=== PATIENT | female | born 1955 | race Caucasian/White ===

== ENCOUNTER → 2018-05-27 09:55 | Outpatient (CLI) | payer OTHER, SELFPAY ==
[2018-05-27 11:29] LABS: Alanine Aminotransferase 37 IU/L (9-52); Albumin 4.4 g/dL (3.5-5.0); Albumin Globulin Ratio 1.5 (1.0-2.8); Alkaline Phosphatase 87 U/L (38-126); Aspartate Aminotransferase 32 IU/L (14-36); BUN Creatinine Ratio 21.1 (6-22); Bilirubin Total 0.6 mg/dL (0.2-1.3); Blood Urea Nitrogen 19 mg/dL (7-17); Calcium 9.6 mg/dL (8.4-10.2); Carbon Dioxide 29 mmol/L (22-32); Chloride 103 mmol/L (98-107); Cholesterol 206 mg/dL (140-199); Estimated Glomerular Filt Rate > 60.0 mL/min (>60); Glucose 99 mg/dL (80-110); HDL Cholesterol 69 mg/dL (40-60); HEMOLYSIS < 15 (0-50); LDL Cholesterol Calculated 125 mg/dL (<100); Potassium 4.3 mmol/L (3.4-5.1); Sodium 140 mmol/L (137-145); Total Protein 7.4 g/dL (6.3-8.2); Triglycerides 61 mg/dL (35-150)
[2018-05-27 11:52] LABS: Vitamin D 25 Hydroxy (D3) 40.5 ng/mL (30.0-100.0)
[2018-05-27 12:10] LABS: TSH w/ Reflex to FT4 1.53 uIU/mL (0.47-4.68)
== END ==
PROVIDERS: PCP Student in an Organized Health Care Education/Training Program; Visit Provider Student in an Organized Health Care Education/Training Program
DX: Z13.220 Encounter for screening for lipoid disorders (principal); F41.9 Anxiety disorder, unspecified; E55.9 Vitamin D deficiency, unspecified; K21.9 Gastro-esophageal reflux disease without esophagitis; B35.1 Tinea unguium
CPT/HCPCS: 36415; 80053; 80061; 82306; 84443

== ENCOUNTER → 2018-07-08 10:04 | Outpatient (CLI) | payer OTHER, SELFPAY ==
--- NOTE | 2018-07-08 10:08 | DI.MG.S_ITS ---
BILATERAL DIGITAL SCREENING MAMMOGRAM 3D/2D WITH CAD: 07/08/2018 CLINICAL: Routine screening. Baseline exam. No prior exams were available for comparison. The tissue of both breasts is heterogeneously dense. This may lower the sensitivity of mammography. Current study was also evaluated with a Computer Aided Detection (CAD) system. There are benign calcifications in both breasts. No significant masses, calcifications, or other findings are seen in either breast. IMPRESSION: There is no mammographic evidence of malignancy. A 1 year screening mammogram is recommended. This exam was interpreted at Station ID: [id number]. NOTE: For mammograms, a report in lay terms will be sent to the patient. Approximately 15% of breast malignancies will not be visualized mammographically. In the management of a palpable breast mass, a negative mammogram must not discourage biopsy of a clinically suspicious lesion. Electronically Signed By: Ramiro [email or web address]:07/08/2018 10:58:50 letter sent: Normal Exam ACR BI-RADS Category 2: Benign Finding(s) 3342F
== END ==
PROVIDERS: PCP Student in an Organized Health Care Education/Training Program; Visit Provider Student in an Organized Health Care Education/Training Program
DX: Z12.31 Encounter for screening mammogram for malignant neoplasm of breast (principal); M85.851 Other specified disorders of bone density and structure, right thigh; Z78.0 Asymptomatic menopausal state; Z91.89 Other specified personal risk factors, not elsewhere classified
CPT/HCPCS: 77063; 77067; 77080

== ENCOUNTER 2018-10-04 14:46 | Day surgery (SDC) | payer OTHER, SELFPAY ==
[2018-10-04] VITALS (8 sets, daily range): BP systolic 132–163; BP diastolic 76–84; PULSE 60–76; RESP 11–16; TEMP 36.2–36.8; O2SAT 98–100; BMI 29.4
[2018-10-04] MEDS: SODIUM CHLORIDE 0.9% 1,000 ML 200 ML IV (14:59)
--- NOTE | 2018-10-04 15:36 | PM.HP.1 ---
History of Present Illness Date Patient Seen: 10/04/18 Time Patient Seen: 15:43 Chief complaint: [id number] SCREENING COLONOSCOPY Narrative: Patient is asymptomatic no melena no hematochezia has never had a colonoscopy Patient History Medical History Anxiety (Chronic) Depression (Chronic) Difficulty breathing (Chronic) Family history of bipolar disorder (Chronic) Foot pain (Chronic) Headache (Chronic) Hearing loss (Chronic) Heartburn (Chronic) History of urinary incontinence (Chronic) Nail fungus (Chronic) Vision disorder (Chronic) Chicken pox (Resolved) Measles (Resolved) Mumps (Resolved) Surgical History (Updated 06/20/18 @ 19:57 by Yary Corado) history (Resolved) Anesthesia (Resolved) History of (Resolved) History of section (Resolved) History of surgery (Resolved) Family History (Updated 06/20/18 @ 19:59 by Yary Corado) Father No problems noted. Mother Diabetes mellitus Sister Family history of thyroid problem Mental health problem Social History household members: spouse Smoking Status: Never smoker alcohol intake: current substance use type: marijuana Family & Social History Family History (Updated 06/20/18 @ 19:59 by Yary Corado) Father No problems noted. Mother Diabetes mellitus Sister Family history of thyroid problem Mental health problem Social History: household members spouse Tobacco & Substance use: Smoking Status Never smoker alcohol intake current Meds Home Medications Medication Instructions Recorded Confirmed Type cholecalciferol (vitamin D3) 1,000 1,000 unit PO DAILY 05/18/18 10/04/18 History unit capsule omeprazole 40 mg capsule,delayed 40 mg PO DAILY #90 cap 08/19/18 10/04/18 Rx release Multi Vitamin 1 tab PO DAILY 10/04/18 10/04/18 History Allergies Allergy/AdvReac Type Severity Reaction Status Date / Time No Known Drug Allergies Allergy Verified 06/12/18 18:17 Review of Systems Review of Systems All systems reviewed & are unremarkable except as noted in HPI and below Exam Vital Signs (past 8 hours): - 10/04/18 15:09 Temperature 97.5 F L Pulse Rate 76 Respiratory Rate 16 Blood Pressure 163/83 H Pulse Oximetry 98 Oxygen Delivery Method Room Air Narrative Exam Narrative: Patient is asymptomatic alert and oriented Lungs are clear Heart regular rhythm grade 2/6 systolic ejection murmur probably aortic radiates from the right side up to the neck Abdomen is soft and nontender no organomegaly Rectal will be done at time of colonoscopy Assessment & Plan Assessment & Plan narrative: Patient here for her 1st screening colonoscopy. She is asymptomatic. I have described the risks of bleeding and infection and perforation. She understands that these are rare. She has no further questions.
[2018-10-04] MEDS: MIDAZOLAM 5 MG/5 ML VIAL IV (15:53)
[2018-10-04] MEDS: fentaNYL 250 MCG/5 ML INJ IV (15:54)
--- NOTE | 2018-10-04 16:25 | PM.OP.ENDO ---
Operative Date/Time/Diagnoses Date of procedure: 10/04/18 Time of procedure: 16:25 Pre-op diagnosis: Screening colonoscopy Post-op diagnosis: same Procedure & Clinicians Study performed: Total colonoscopy to the cecum Same procedure as scheduled: Yes Indications: Screening Surgeon: Nasir Rod Procedure Notes SCOAP/Timeout: Was done Procedure in detail: Patient was properly identified during surgical pause she was given a total of 7 mg of Versed and 250 micro g of fentanyl throughout the procedure which was well tolerated. Patient has a very difficult colonoscopy had to be repositioned several times abdominal pressure applied but we were able to reach the cecum with the tip of the colonoscope. Patient has no polyps no tumors no ulcerations. Any future colonoscopy procedures should be attended with general anesthesia. Scope withdrawal time: 15 Sedation minutes: 35 Specimen(s): none sent Complications: none Impression: No evidence of adenomatous polyps ulceration or diverticulosis patient has a severely angulated and tortuous colon. Any future attempt at colonoscopy should be done with general anesthesia Recommendations: Colonscopy in 10 years Disposition: PACU
--- NOTE | 2018-10-04 16:28 | P.OP.ENDO_ITS ---
Operative Date/Time/Diagnoses Date of procedure: 10/04/18 Time of procedure: 16:25 Pre-op diagnosis: Screening colonoscopy Post-op diagnosis: same Procedure & Clinicians Study performed: Total colonoscopy to the cecum Same procedure as scheduled: Yes Indications: Screening Surgeon: Nasir Rod Procedure Notes SCOAP/Timeout: Was done Procedure in detail: Patient was properly identified during surgical pause she was given a total of 7 mg of Versed and 250 micro g of fentanyl throughout the procedure which was well tolerated. Patient has a very difficult colonoscopy had to be repositioned several times abdominal pressure applied but we were able to reach the cecum with the tip of the colonoscope. Patient has no polyps no tumors no ulcerations. Any future colonoscopy procedures should be attended with general anesthesia. Scope withdrawal time: 15 Sedation minutes: 35 Specimen(s): none sent Complications: none Impression: No evidence of adenomatous polyps ulceration or diverticulosis patient has a severely angulated and tortuous colon. Any future attempt at co lonoscopy should be done with general anesthesia Recommendations: Colonscopy in 10 years Disposition: PACU
--- NOTE | 2018-10-04 16:55 | SUR.PHASEI ---
Post procedure note: patient vital signs stable. On room air Sats 99-1000%. Mostly sleeping, easily arousable by normal voice. Responds verbally and is able to answer questions appropriately. NSR 60-70's. No complaints of pain. Tolerating ice chips.
--- NOTE | 2018-10-05 09:53 | PM.OP.ENDO ---
Procedure Notes Procedure in detail: This is Dr. Rod dictating an addendum to a colonoscopy report. The colonoscopy was done yesterday late afternoon. October 04, 2018. I dictated the operative report as no abnormal findings. No polyps no tumors no ulcerations. After reviewing operative photographs I have decided there may be an abnormality in the rectosigmoid area represented by a white plaque in the rectosigmoid mucosa. I did see this and photographed it as I introduced the scope however on withdrawal of the scope when I normally do biopsies or polypectomies I could not find that area. Therefore there has been no biopsy. I have telephoned the patient this morning which is October 05, 2018 and described this finding. Actually I had given the patient a copy of that photograph. My plan is to repeat a flexible sigmoidoscopy in 3 months. The patient understands and will be scheduled through my office for that procedure this December 2018. She is asymptomatic and doing well after yesterday's exam. This concludes the addendum to my operative note of October 04, 2018 Impression: Possible abnormal finding in the rectosigmoid to be reexamined in 3 months. Plan for aftercare: Flexible sigmoid scope in 3 months.
== END 2018-10-04 17:24 | disposition home or self-care (01) ==
PROVIDERS: PCP Student in an Organized Health Care Education/Training Program; Visit Provider Surgery
PROC: 0DJD8ZZ Inspection of Lower Intestinal Tract, Via Natural or Artificial Opening Endoscopic (ICD-10-PCS; CPT 45378; principal; 2018-10-04 16:00)
DX: Z12.11 Encounter for screening for malignant neoplasm of colon (principal)
CPT/HCPCS: 45378; 99152; 99153; J2250; J3010

== ENCOUNTER 2019-01-28 12:10 | Day surgery (SDC) | payer OTHER, SELFPAY ==
[2019-01-28] MEDS: SODIUM CHLORIDE 0.9% 1,000 ML 200 ML IV (12:21)
[2019-01-28 12:34] VITALS: BP 163/86; PULSE 70; RESP 16; TEMP 36.2; O2SAT 100; BMI 29.2
--- NOTE | 2019-01-28 12:58 | PM.HP.1 ---
History of Present Illness History of Present Illness Date Patient Seen: 01/28/19 Time Patient Seen: 12:58 Chief complaint: [id number] FLEX SIG Narrative: Patient had a complete colonoscopy 3 months ago. At that time I saw a plaque-like area in the sigmoid colon that was not possible to biopsy of is a directly around the band but I could visualize a whitish plaque and so I am repeating her flexible sigmoidoscopy today to follow up on that abnormality. The patient remains asymptomatic. Patient History Medical History Anxiety (Chronic) Chicken pox (Resolved) Depression (Chronic) Difficulty breathing (Chronic) Family history of bipolar disorder (Chronic) Foot pain (Chronic) Headache (Chronic) Hearing loss (Chronic) Heartburn (Chronic) History of urinary incontinence (Chronic) Irregular menstrual cycle (Resolved) Measles (Resolved) Mumps (Resolved) Nail fungus (Chronic) Onychomycosis (Chronic) Vision disorder (Chronic) Surgical History history (Resolved) Anesthesia (Resolved) History of section (Resolved) History of surgery (Resolved) History of (Resolved) Family & Social History Family History Father No problems noted. Mother Diabetes mellitus Frail elderly Sister Family history of thyroid problem Mental health problem Sister Stroke Social History: household members spouse Tobacco & Substance use: Smoking Status Never smoker alcohol intake current Meds Home Medications and Allergies Home Medications Medication Instructions Recorded Confirmed Type cholecalciferol (vitamin D3) 1,000 1,000 unit PO DAILY 05/18/18 01/28/19 History unit capsule omeprazole 40 mg capsule,delayed 40 mg PO DAILY #90 cap 08/19/18 01/28/19 Rx release utkexduy-njed-ere-folic acid [One 1 tab PO DAILY #0 10/04/18 01/28/19 History Daily For Women] Allergies Allergy/AdvReac Type Severity Reaction Status Date / Time No Known Drug Allergies Allergy Verified 01/28/19 12:23 Review of Systems Review of Systems ROS Unobtainable: All systems reviewed & are unremarkable except as noted in HPI and below Exam Vital Signs (past 8 hours): - 01/28/19 12:34 Temperature 97.1 F L Pulse Rate 70 Respiratory Rate 16 Blood Pressure 163/86 H Pulse Oximetry 100 Oxygen Delivery Method Room Air Narrative Exam Narrative: Patient resting comfortably in the outpatient department with no complaints. Lungs are clear with no rales or wheezes Heart regular rhythm no murmur Abdomen soft nontender Rectal be done at colonoscopy Assessment & Plan Assessment & Plan narrative: This patient had a colonoscopy 3 months ago that I did myself. At that time she had a plaque-like area in the sigmoid that I could not biopsy as it was directly behind a fold .. Today we are re-evaluating that area with a flexible sigmoidoscopy today patient remains asymptomatic.
--- NOTE | 2019-01-28 13:11 | PM.OP.ENDO ---
Operative Date/Time/Diagnoses Date of procedure: 01/28/19 Time of procedure: 13:12 Pre-op diagnosis: Possible sigmoid abnormality Post-op diagnosis: other (Normal endoscopy from anus to 60 cm splenic flexure) Procedure & Clinicians Study performed: Examination of left colon Same procedure as scheduled: Yes Indications: Patient had a complete colonoscopy 3 months ago during which time I thought I encountered an abnormality in the sigmoid colon which may need re-evaluation on today's exam this is completely normal. Surgeon: Nasir Rod Procedure Notes SCOAP/Timeout: This was done Procedure in detail: The patient was properly identified during surgical pause given 2 mg of Versed and 100 micro g of fentanyl. The flexible colonoscope was inserted transanally up to the splenic flexure 60 cm. Very thorough and careful evaluation of possible abnormal area in the sigmoid was carried out. I re-evaluated this area 3 or 4 times and saw no abnormality. No biopsies were required. Procedure was well tolerated. The plan for flexible sigmoidoscopy actually was carried out beyond that to the splenic flexure. Scope withdrawal time: 5 Sedation minutes: 10 Specimen(s): none sent Complications: none Post-procedure Recommendations: Colonscopy in 10 years
[2019-01-28] MEDS: fentaNYL 100 MCG/2 ML INJ IV (13:12)
[2019-01-28] MEDS: MIDAZOLAM 2 MG/2 ML VIAL IV (13:13)
[2019-01-28 13:15] VITALS: BP 125/68; PULSE 66; RESP 15; TEMP 35.9; O2SAT 99
[2019-01-28 13:20] VITALS: BP 129/74; PULSE 65; RESP 15; O2SAT 100
[2019-01-28 13:25] VITALS: BP 147/77; PULSE 65; RESP 16; TEMP 36.1; O2SAT 100
[2019-01-28 13:48] VITALS: BP 138/82; PULSE 70; RESP 16; TEMP 36.5; O2SAT 99
== END 2019-01-28 13:56 | disposition home or self-care (01) ==
PROVIDERS: PCP Student in an Organized Health Care Education/Training Program; Visit Provider Surgery
PROC: 0DJD8ZZ Inspection of Lower Intestinal Tract, Via Natural or Artificial Opening Endoscopic (ICD-10-PCS; CPT 45378; principal; 2019-01-28 13:00)
DX: K63.89 Other specified diseases of intestine (principal)
CPT/HCPCS: 45330; 99152; J2250; J3010

== ENCOUNTER → 2019-06-10 11:58 | Outpatient (CLI) | payer OTHER, SELFPAY ==
[2019-06-10 12:50] LABS: Chloride 104 mmol/L (98-107)
[2019-06-10 13:15] LABS: BUN Creatinine Ratio 22.5 (6-22); Blood Urea Nitrogen 18 mg/dL (7-17); Calcium 9.6 mg/dL (8.4-10.2); Carbon Dioxide 27 mmol/L (22-32); Estimated Glomerular Filt Rate > 60.0 mL/min (>60); Glucose 92 mg/dL (80-110); HEMOLYSIS < 15 (0-50); Potassium 3.8 mmol/L (3.4-5.1); Sodium 138 mmol/L (137-145)
[2019-06-10 13:25] LABS: TSH w/ Reflex to FT4 1.74 uIU/mL (0.47-4.68)
[2019-06-10 14:44] LABS: Microalbumi Creatinin Ratio Ur 7.6 ug/mg CR (<30); Microalbumin Urine Random < 0.6 mg/dL (0-1.6)
== END ==
PROVIDERS: PCP Student in an Organized Health Care Education/Training Program; Referring Provider Student in an Organized Health Care Education/Training Program; Visit Provider Student in an Organized Health Care Education/Training Program
DX: I10 Essential (primary) hypertension (principal)
CPT/HCPCS: 36415; 80048; 82043; 82570; 84443

== ENCOUNTER 2019-09-03 11:46 | Emergency (ER) | payer OTHER, SELFPAY ==
[2019-09-03 11:54] VITALS: BP 138/61; PULSE 70; RESP 16; TEMP 36.4; O2SAT 99; BMI 29.2
[2019-09-03 12:50] VITALS: BP 117/68; PULSE 61; O2SAT 99
[2019-09-03 13:00] VITALS: BP 117/68; PULSE 60; RESP 18; O2SAT 98
[2019-09-03] MEDS: SODIUM CHLORIDE 0.9% 1,000 ML 150 ML IV (13:17)
[2019-09-03 13:19] LABS: Add Manual Diff / Slide Review NO; Basophils Absolute Auto 100 /uL (0-100); Basophils Percent Auto 0.6 % (0-2); Eosinophils Absolute Auto 100 /uL (0-450); Eosinophils Percent Auto 1.1 % (2-4); Hematocrit 40.8 % (36-46); Lymphocytes Absolute Auto 2100 /uL (1100-4500); Mean Corpuscular HGB Conc 34.3 % (30-36); Mean Corpuscular Hemoglobin 31.6 PG (26-34); Mean Corpuscular Volume 92.2 fL (80-100); Monocytes Absolute Auto 700 /uL (0-900); Monocytes Percent Auto 6.5 % (3-14); Neutrophils Absolute Auto 7100 /uL (1500-7000); Neutrophils Percent Auto 70.8 % (50-75); Platelet Count 238 X10^3/uL (150-400); Red Blood Cell Count 4.43 X10^6/uL (4.0-5.2); Red Cell Distribution Width 13.5 % (11.6-14.8); White Blood Cell Count 10.1 X10^3/uL (4.5-11.0)
[2019-09-03 13:31] LABS: Alanine Aminotransferase 19 IU/L (<35); Albumin Globulin Ratio 1.4 (1.0-2.8); Alkaline Phosphatase 81 U/L (38-126); Aspartate Aminotransferase 25 IU/L (14-36); BUN Creatinine Ratio 17.5 (6-22); Bilirubin Total 0.6 mg/dL (0.2-1.3); Blood Urea Nitrogen 14 mg/dL (7-17); Calcium 9.4 mg/dL (8.4-10.2); Carbon Dioxide 29 mmol/L (22-32); Chloride 103 mmol/L (98-107); Estimated Glomerular Filt Rate > 60.0 mL/min (>60); Globulin 2.9 g/dL (1.7-4.1); Glucose 104 mg/dL (80-110); HEMOLYSIS < 15 (0-50); Lipase 60 U/L (23-300); Sodium 136 mmol/L (137-145); Total Protein 6.9 g/dL (6.3-8.2)
[2019-09-03 13:32] LABS: Lactate (Lactic Acid) 0.9 mmol/L (0.7-2.1)
--- NOTE | 2019-09-03 13:48 | DI.CT.S_ITS ---
PROCEDURE: CT ABDOMEN PELVIS W CON INDICATIONS: low abdominal intermittent cramping pain x 2 days TECHNIQUE: After the administration of intravenous contrast, 5 mm thick sections acquired from the diaphragm to the symphysis. 5 mm coronal and sagittal reformats were acquired. For radiation dose reduction, the following was used: automated exposure control, adjustment of mA and/or kV according to patient size. COMPARISON: None. FINDINGS: Image quality: Excellent. ABDOMEN: Lung bases: Lung bases are clear. Heart size is normal. Solid organs: Liver is normal in size and enhancement. Gallbladder wall does not appear thickened. Biliary system is non dilated. Pancreas enhances normally. Spleen is normal in size and enhancement. No adrenal nodules. Kidneys demonstrate normal size and enhancement, without hydronephrosis. Peritoneum and bowel: There is focal prominent wall thickening seen involving the splenic flexure and the descending colon. There is moderate surrounding inflammatory change. No free air is seen to suggest perforation. No loculated fluid collection is seen to suggest abscess. There is a mild amount of simple appearing free fluid seen layering within the pelvis. No dilated loops of small bowel are seen. Nodes and vessels: No retroperitoneal or mesenteric adenopathy by size criteria. Aorta and inferior vena cava are normal in size. Miscellaneous: A mild periumbilical hernia is seen, containing fat. PELVIS: Genitourinary: Bladder wall thickness is normal. The uterus appears normal for age. No adnexal masses are seen. Miscellaneous: No inguinal hernias or adenopathy. Bones: No suspicious bony lesions. No vertebral body compression fractures. Degenerative changes are seen, particularly involving the lower lumbar spine. IMPRESSION: Focal colitis involving the splenic flexure and the descending colon. Please correlate with infectious and inflammatory causes. Ischemia is possible, yet considered to be less likely in this patient. When clinically appropriate (following adequate treatment of the patient's current clinical episode) a colonoscopy is recommended for further evaluation for a potential underlying mass (if not already recently done). No findings of perforation or abscess are detected. There is a small amount of free pelvic seen. Incidental note is made of: Fat containing periumbilical hernia Lumbar spine degenerative Dictated by: Mauricio Castro M.D. on 09/03/2019 at 13:25 Approved by: Mauricio Castro M.D. on 09/03/2019 at 13:29
[2019-09-03 14:50] LABS: RBC Urine None Seen (0-5/HPF)
[2019-09-03 15:06] LABS: Amorphous Sediment Urine 1+; Bacteria Urine Occasional (0-1); Culture Indicated Urine Specimen Cultured; Mucus Urine 1+ (Negative); Squamous Epithelial Cell Urine 0-1 /HPF (0-5/HPF); WBC Urine 1-5/HPF (0-5/HPF)
[2019-09-03 15:13] VITALS: BP 172/77; PULSE 66; RESP 18; O2SAT 99
--- NOTE | 2019-09-03 15:16 | ED_ITS ---
HPI - Abdominal Pain <RIKKI Aguirre - Last Filed: 09/03/19 22:22> General Chief Complaint: Abdominal Pain Stated Complaint: ABD pain Time Seen by Provider: 09/03/19 12:35 Source: patient Mode of arrival: Ambulatory Limitations: no limitations History of Present Illness HPI narrative: This is a 64 year female, nonsmoker, who has history of hypertension, GERD who presents to ED with significant other with chief complain of intermittent left upper quadrant and lower quadrant cramping discomfort for last 2 days. Patient also has some suprapubic discomfort. Patient reports she had worst pain 2 days ago and woke up from pain however, pain since somewhat subsided yesterday and today. Patient reports decreased appetite and chills. Denies fever, nausea or vomiting. Patient denies diarrhea and reports she usually has hard stool like a ball daily and states she is not really passing gas. Patient reports urinary frequency especially and nights without dysuria, hematuria. She denies flank pain. Patient has a history of abdominal surgery as and hairball removal during childhood. Patient had recent colonoscopy twice last September and January in 2018 at [facility]. Initial colonoscopy showed retrosigmoid mucosal area with a white plaque which was not able to biopsied. Repeat colonoscopy was done in January which was cleared with normal findings. According to patient's , he received the letter from general surgery clinic that she may require a surgery and patient states she was told by Dr. Rod that her bowel was twisted after colonoscopy. Patient denies family history of colon cancer. Related Data Home Medications Medication Instructions Recorded Confirmed cholecalciferol (vitamin D3) 25 1,000 unit PO DAILY 05/18/18 06/10/19 mcg (1,000 unit) capsule One Daily For Women 1 tab PO DAILY #0 10/04/18 06/10/19 Previous Rx's Medication Instructions Recorded omeprazole 40 mg capsule,delayed 40 mg PO DAILY #90 cap 08/19/18 release lisinopril 20 mg tablet 20 mg PO DAILY #90 tab 07/08/19 propranolol 40 mg tablet 40 mg PO BID #60 tab 08/04/19 ciprofloxacin HCl [Cipro] 500 mg PO BID 7 Days #14 tab 09/03/19 Allergies Allergy/AdvReac Type Severity Reaction Status Date / Time No Known Drug Allergies Allergy Verified 06/10/19 11:25 Review of Systems <RIKKI Aguirre - Last Filed: 09/03/19 22:22> Review of Systems Narrative: General: Denies fever, (+) chills, fatigue, malaise, sweats. HEENT: Denies sinus pain, ear pain, sore throat, difficulty swallowing, dizziness. Respiratory: Denies dyspnea, cough, wheezing, hemoptysis, sputum. Cardiovascular: Denies chest pain, palpitations, orthopnea, edema. Gastrointestinal: See HPI : Denies dysuria, (+) frequency, incontinence, hematuria, urinary retention. Musculoskeletal: Denies weakness, joint pain or bony pain. Skin: Denies rash, skin lesions, or other. Neurologic: Denies weakness, headache, numbness, change in speech, confusion, seizures, incoordination. Psychiatric: No concerning psychosocial issues. 12-point review of systems is negative except for those stated above. Patient History <RIKKI Aguirre - Last Filed: 09/03/19 22:22> Medical History Anxiety (Chronic) Chicken pox (Resolved) Depression (Chronic) Difficulty breathing (Chronic) Family history of bipolar disorder (Chronic) Foot pain (Chronic) Headache (Chronic) Hearing loss (Chronic) Heartburn (Chronic) History of urinary incontinence (Chronic) Irregular menstrual cycle (Resolved) Measles (Resolved) Mumps (Resolved) Nail fungus (Chronic) Onychomycosis (Chronic) Vision disorder (Chronic) Surgical History history (Resolved) Anesthesia (Resolved) History of section (Resolved) History of surgery (Resolved) History of (Resolved) Family History Father No problems noted. Mother Diabetes mellitus Frail elderly Sister Family history of thyroid problem Mental health problem Sister Stroke Social History household members: spouse Smoking Status: Never smoker alcohol intake: current substance use type: marijuana Smoking Status: Never smoker alcohol intake frequency: 0-2 drinks per day Alcohol type: wine Substance Use Type: marijuana Exam <RIKKI Aguirre - Last Filed: 09/03/19 22:22> Narrative Exam Narrative: GEN: Alert, oriented x 3, well appearing and nourished, and in n o acute distress. Head: Normal cephalic, atraumatic. No scalp or temporal tenderness, palpable mass or rash. EYES: Pupils are equal, round, and reactive to light and accommodation. Extraocular muscles are intact bilaterally. There is no subconjunctival hemorrhage, exudate and sclera non-icteric. ENT: Bilateral auditory canals and tympanic membranes clear. Hearing grossly intact. Nose without bleeding, purulent discharge or deviation. Facial sinuses nontender to palpate. Mucous membrane moist, no mucosal lesion. Throat without erythema, tonsillar hypertrophy or exudate. Uvula in midline, airway patent. Neck: Trachea in midline. No JVD, non-tender without lymphadenopathy. No masses or thyroid megaly. Supple, non-tender and no meningeal signs. CARDIAC: Normal regular rate and rhythm without murmurs, gallops, or rubs. No chest wall tenderness. No peripheral edema, cyanosis or pallor. Capillary refill is less than 2 seconds. RESPIRATORY: Lungs are clear to auscultate bilaterally. No cough, wheezes, rales, or rhonchi. No stridor, respiratory distress, increase work of breathing, or accessary muscle used. ABD: Abdomen soft and non-distended. Left lower, upper quadrant pain discomfort with palpation. No guarding or rebound tenderness to palpate. Bowel sounds are normal in all 4 quadrants. There is no palpable masses or organomegaly. EXT: Full painless ROM of all extremities with no loss of sensation, strength, effusion or edema. SKIN: Warm, dry, normal color for patient. No erythema, lesions or rash over visible areas. BACK: Nontender without deformity or crepitance. No flank tenderness. NEUROLOGICAL: Alert and oriented to place, time and person. Sensation and motor function intact bilaterally. No facial droops, dysphasia. PSYCHIATRIC: Good judgement and reason, without hallucinations, abnormal affect or abnormal behaviors during the examination. Patient is not suicidal. Initial Vital Signs Initial Vital Signs: Vital Signs Temperature 97.6 F 09/03/19 11:54 Pulse Rate 70 09/03/19 11:54 Respiratory Rate 16 09/03/19 11:54 Blood Pressure 138/61 09/03/19 11:54 Pulse Oximetry 99 09/03/19 11:54 <Shine Soto MD - Last Filed: 09/04/19 07:45> Initial Vital Signs Initial Vital Signs: Vital Signs Temperature 97.6 F 09/03/19 11:54 Pulse Rate 70 09/03/19 11:54 Respiratory Rate 16 09/03/19 11:54 Blood Pressure 138/61 09/03/19 11:54 Pulse Oximetry 99 09/03/19 11:54 Scores <[facility] - Last Filed: 09/03/19 22:22> GCS Diane coma scale eye opening: Spontaneous Diane coma scale verbal response: Orientated [place] coma scale motor response: Obey commands Diane coma scale total score: 15 Course <RIKKI Aguirre - Last Filed: 09/03/19 22:22> Orders Ordered: Discontinued Medications Sodium Chloride (Normal Saline 0.9%) 1,000 mls @ 150 mls/hr IV CONT VICTOR HUGO Last Infusion: 09/03/19 15:30 Dose: 0 mls/hr Documented by: Admin: 09/03/19 13:17 Dose: 150 mls/hr Documented by: GIA Consultations Consultation #1: Dr. Fernandez at [facility] surgery consulted with physical, labs, imaging test. It was recommended to start her on Cipro b.i.d. course for 7 days and re-evaluated by primary care physician next week and a referral to General surgery Clinic. Time: 15:18 Vital Signs Vital signs: Vital Signs - 8 hr 09/03/19 15:13 Pulse Rate 66 Respiratory Rate 18 Blood Pressure [Left Arm] 172/77 H Pulse Oximetry 99 <Shine Stoo MD - Last Filed: 09/04/19 07:45> Orders Ordered: Discontinued Medications Sodium Chloride (Normal Saline 0.9%) 1,000 mls @ 150 mls/hr IV CONT VICTOR HUGO Last Infusion: 09/03/19 15:30 Dose: 0 mls/hr Documented by: Admin: 09/03/19 13:17 Dose: 150 mls/hr Documented by: GIA Vital Signs Vital signs: Vital Signs - 8 hr 09/03/19 15:13 Pulse Rate 66 Respiratory Rate 18 Blood Pressure [Left Arm] 172/77 H Pulse Oximetry 99 MDM - Abdominal Pain <XIMENA AguirreP - Last Filed: 09/03/19 22:22> Differential Diagnosis Differential diagnosis: Likely abdominal pain, calculus of kidney, diverticulitis, small bowel obstruction and other (UTI) Medical Records Attestation: I reviewed the patient's medical records. Lab Data Attestation: I reviewed the patient's lab results. Result diagrams: 09/03/19 13:10 09/03/19 13:10 Labs: Lab Results 09/03/19 09/03/19 09/03/19 Range/Units 13:10 13:10 13:10 WBC 10.1 (4.5-11.0) X10^3/uL RBC 4.43 (4.0-5.2) X10^6/uL Hgb 14.0 (12.0-16.0) g/dL Hct 40.8 (36-46) % MCV 92.2 (80-100) fL MCH 31.6 (26-34) PG MCHC 34.3 (30-36) % RDW 13.5 (11.6-14.8) % Plt Count 238 (150-400) X10^3/uL Neut % (Auto) 70.8 (50-75) % Lymph % (Auto) 21.0 L (25-40) % [place] % (Auto) 6.5 (3-14) % Eos % (Auto) 1.1 L (2-4) % Baso % (Auto) 0.6 (0-2) % Neut # (Auto) 7100 H (6480-8101) /uL Lymph # (Auto) 2100 (8215-3883) /uL [place] # (Auto) 700 (0-900) /uL Eos # (Auto) 100 (0-450) /uL Baso # (Auto) 100 (0-100) /uL Sodium 136 L (137-145) mmol/L Potassium 4.0 (3.4-5.1) mmol/L Chloride 103 (98-107) mmol/L Carbon Dioxide 29 (22-32) mmol/L BUN 14 (7-17) mg/dL Creatinine 0.80 (0.52-1.04) mg/dL Estimated GFR > 60.0 (>60) mL/min BUN/Creatinine Ratio 17.5 (6-22) Glucose 104 (80-110) mg/dL Lactate 0.9 (0.7-2.1) mmol/L Calcium 9.4 (8.4-10.2) mg/dL Total Bilirubin 0.6 (0.2-1.3) mg/dL AST 25 (14-36) IU/L ALT 19 (<35) IU/L Alkaline Phosphatase 81 (38-126) U/L Total Protein 6.9 (6.3-8.2) g/dL Albumin 4.0 (3.5-5.0) g/dL Globulin 2.9 (1.7-4.1) g/dL Albumin/Globulin Ratio 1.4 (1.0-2.8) Lipase 60 (23-300) U/L Urine RBC (0-5/HPF) Urine WBC (0-5/HPF) Ur Squamous Epith Cells (0-5/HPF) Amorphous Sediment Urine Bacteria (None) Urine Mucus (Negative) Ur Culture Indicated? 09/03/19 Range/Units 14:24 WBC (4.5-11.0) X10^3/uL RBC (4.0-5.2) X10^6/uL Hgb (12.0-16.0) g/dL Hct (36-46) % MCV (80-100) fL MCH (26-34) PG MCHC (30-36) % RDW (11.6-14.8) % Plt Count (150-400) X10^3/uL Neut % (Auto) (50-75) % Lymph % (Auto) (25-40) % [place] % (Auto) (3-14) % Eos % (Auto) (2-4) % Baso % (Auto) (0-2) % Neut # (Auto) (1109-2614) /uL Lymph # (Auto) (5215-1246) /uL [place] # (Auto) (0-900) /uL Eos # (Auto) (0-450) /uL Baso # (Auto) (0-100) /uL Sodium (137-145) mmol/L Potassium (3.4-5.1) mmol/L Chloride (98-107) mmol/L Carbon Dioxide (22-32) mmol/L BUN (7-17) mg/dL Creatinine (0.52-1.04) mg/dL Estimated GFR (>60) mL/min BUN/Creatinine Ratio (6-22) Glucose (80-110) mg/dL Lactate (0.7-2.1) mmol/L Calcium (8.4-10.2) mg/dL Total Bilirubin (0.2-1.3) mg/dL AST (14-36) IU/L ALT (<35) IU/L Alkaline Phosphatase (38-126) U/L Total Protein (6.3-8.2) g/dL Albumin (3.5-5.0) g/dL Globulin (1.7-4.1) g/dL Albumin/Globulin Ratio (1.0-2.8) Lipase (23-300) U/L Urine RBC None seen (0-5/HPF) Urine WBC 1-5/hpf (0-5/HPF) Ur Squamous Epith Cells 0-1 /hpf (0-5/HPF) Amorphous Sediment 1+ Urine Bacteria Occasional (0-1) (None) Urine Mucus 1+ H (Negative) Ur Culture Indicated? Specimen cultured Point of care testing: Urine Dip Bedside Urine Glucose Negative Bedside Urine Bilirubin + 1 Bedside Urine Ketone - Negative Urine Specific [place] 1.015 Bedside Urine Occult Blood - Negative Bedside Urine pH 6.0 Bedside Urine Protein - Negative Bedside Urine Urobilinogen +/- 1mg Bedside Urine Nitrite - Negative Bedside Urine Leukocytes + [address] scan - abdomen/pelvis: Radiologist's Impression: [place] [address] CT Scan Report Signed Patient: Nicolle Moreno#: [id number] : 6Acct:[id number] Age/Sex: 64 / FDate of Service: 09/03/19 Loc: ED Accession Number: [id number] Procedure: CT abdomen pelvis w con Ordering Provider: Ilan Uribe PROCEDURE: CT ABDOMEN PELVIS W CON INDICATIONS: low abdominal intermittent cramping pain x 2 days TECHNIQUE: After the administration of intravenous contrast, 5 mm thick sections acquired from the diaphragm to the symphysis. 5 mm coronal and sagittal reformats were acquired. For radiation dose reduction, the following was used: automated exposure control, adjustment of mA and/or kV according to patient size. COMPARISON: None. FINDINGS: Image quality: Excellent. ABDOMEN: Lung bases: Lung bases are clear. Heart size is normal. Solid organs: Liver is normal in size and enhancement. Gallbladder wall does not appear thickened. Biliary system is non dilated. Pancreas enhances normally. Spleen is normal in size and enhancement. No adrenal nodules. Kidneys demonstrate normal size and enhancement, without hydronephrosis. Peritoneum and bowel: There is focal prominent wall thickening seen involving the splenic flexure and the descending colon. There is moderate surrounding inflammatory change. No free air is seen to suggest perforation. No loculated fluid collection is seen to suggest abscess. There is a mild amount of simple appearing free fluid seen layering within the pelvis. No dilated loops of small bowel are seen. Nodes and vessels: No retroperitoneal or mesenteric adenopathy by size criteria. Aorta and inferior vena cava are normal in size. Miscellaneous: A mild periumbilical hernia is seen, containing fat. PELVIS: Genitourinary: Bladder wall thickness is normal. The uterus appears normal for age. No adnexal masses are seen. Miscellaneous: No inguinal hernias or adenopathy. Bones: No suspicious bony lesions. No vertebral body compression fractures. Degenerative changes are seen, particularly involving the lower lumbar spine. IMPRESSION: Focal colitis involving the splenic flexure and the descending colon. Please correlate with infectious and inflammatory causes. Ischemia is possible, yet considered to be less likely in this patient. When clinically appropriate (following adequate treatment of the patient's current clinical episode) a colonoscopy is recommended for further evaluation for a potential underlying mass (if not already recently done). No findings of perforation or abscess are detected. There is a small amount of free pelvic seen. Incidental note is made of: Fat containing periumbilical hernia Lumbar spine degenerative Dictated by: Mauricio Castro M.D. on 09/03/2019 at 13:25 Approved by: Mauricio Castro M.D. on 09/03/2019 at 13:29 MDM Narrative Medical decision making narrative: Abdominal physical exam was unremarkable except some discomfort to palpate in left lower and upper quadrant. Afebrile in ED with normal to slight hypertensive while in ED with normal heart rates. There is no leukocytosis. Very mild hyponatremia of 136. Normal kidney function test with liver function test. Normal lactate of 0.9 with lipase of 60. Urine test does not show obvious UTI and culture is pending. Patient declined pain medication and anti nausea medication since it was well tolerable. Patient provided with gentle IV hydration with normal saline. Abdominal/pelvis CT indicates focal prominent wall thickening involving splenic flexure and descending colon. There is moderate surrounding inflammatory changes without free air suggesting perforation or mode to lead it fluid collection in suggestion of abscess. There is mild amount of simple appearing free fluid within the pelvis. Kidney appears to be normal without stones or hydronephrosis. Liver, gallbladder, biliary system, pancreas were unremarkable per CT test. Dr. Fernandez was consulted and he was advised to treat patient 7 day course of antibiotic medication with Cipro to treat focal colitis and to follow- up for an evaluation by primary care physician and a referral to general surgery if pain persists. Findings and return precautions were discussed with patient and patient in agreement with treatment plan. <Shine Soto MD - Last Filed: 09/04/19 07:45> Lab Data Labs: Lab Results 09/03/19 09/03/19 09/03/19 Range/Units 13:10 13:10 13:10 WBC 10.1 (4.5-11.0) X10^3/uL RBC 4.43 (4.0-5.2) X10^6/uL Hgb 14.0 (12.0-16.0) g/dL Hct 40.8 (36-46) % MCV 92.2 (80-100) fL MCH 31.6 (26-34) PG MCHC 34.3 (30-36) % RDW 13.5 (11.6-14.8) % Plt Count 238 (150-400) X10^3/uL Neut % (Auto) 70.8 (50-75) % Lymph % (Auto) 21.0 L (25-40) % [place] % (Auto) 6.5 (3-14) % Eos % (Auto) 1.1 L (2-4) % Baso % (Auto) 0.6 (0-2) % Neut # (Auto) 7100 H (9284-3353) /uL Lymph # (Auto) 2100 (2059-9054) /uL [place] # (Auto) 700 (0-900) /uL Eos # (Auto) 100 (0-450) /uL Baso # (Auto) 100 (0-100) /uL Sodium 136 L (137-145) mmol/L Potassium 4.0 (3.4-5.1) mmol/L Chloride 103 (98-107) mmol/L Carbon Dioxide 29 (22-32) mmol/L BUN 14 (7-17) mg/dL Creatinine 0.80 (0.52-1.04) mg/dL Estimated GFR > 60.0 (>60) mL/min BUN/Creatinine Ratio 17.5 (6-22) Glucose 104 (80-110) mg/dL Lactate 0.9 (0.7-2.1) mmol/L Calcium 9.4 (8.4-10.2) mg/dL Total Bilirubin 0.6 (0.2-1.3) mg/dL AST 25 (14-36) IU/L ALT 19 (<35) IU/L Alkaline Phosphatase 81 (38-126) U/L Total Protein 6.9 (6.3-8.2) g/dL Albumin 4.0 (3.5-5.0) g/dL Globulin 2.9 (1.7-4.1) g/dL Albumin/Globulin Ratio 1.4 (1.0-2.8) Lipase 60 (23-300) U/L Urine RBC (0-5/HPF) Urine WBC (0-5/HPF) Ur Squamous Epith Cells (0-5/HPF) Amorphous Sediment Urine Bacteria (None) Urine Mucus (Negative) Ur Culture Indicated? 09/03/19 Range/Units 14:24 WBC (4.5-11.0) X10^3/uL RBC (4.0-5.2) X10^6/uL Hgb (12.0-16.0) g/dL Hct (36-46) % MCV (80-100) fL MCH (26-34) PG MCHC (30-36) % RDW (11.6-14.8) % Plt Count (150-400) X10^3/uL Neut % (Auto) (50-75) % Lymph % (Auto) (25-40) % [place] % (Auto) (3-14) % Eos % (Auto) (2-4) % Baso % (Auto) (0-2) % Neut # (Auto) (8505-8909) /uL Lymph # (Auto) (2628-8873) /uL [place] # (Auto) (0-900) /uL Eos # (Auto) (0-450) /uL Baso # (Auto) (0-100) /uL Sodium (137-145) mmol/L Potassium (3.4-5.1) mmol/L Chloride (98-107) mmol/L Carbon Dioxide (22-32) mmol/L BUN (7-17) mg/dL Creatinine (0.52-1.04) mg/dL Estimated GFR (>60) mL/min BUN/Creatinine Ratio (6-22) Glucose (80-110) mg/dL Lactate (0.7-2.1) mmol/L Calcium (8.4-10.2) mg/dL Total Bilirubin (0.2-1.3) mg/dL AST (14-36) IU/L ALT (<35) IU/L Alkaline Phosphatase (38-126) U/L Total Protein (6.3-8.2) g/dL Albumin (3.5-5.0) g/dL Globulin (1.7-4.1) g/dL Albumin/Globulin Ratio (1.0-2.8) Lipase (23-300) U/L Urine RBC None seen (0-5/HPF) Urine WBC 1-5/hpf (0-5/HPF) Ur Squamous Epith Cells 0-1 /hpf (0-5/HPF) Amorphous Sediment 1+ Urine Bacteria Occasional (0-1) (None) Urine Mucus 1+ H (Negative) Ur Culture Indicated? Specimen cultured Point of care testing: Urine Dip Bedside Urine Glucose Negative Bedside Urine Bilirubin + 1 Bedside Urine Ketone - Negative Urine Specific [place] 1.015 Bedside Urine Occult Blood - Negative Bedside Urine pH 6.0 Bedside Urine Protein - Negative Bedside Urine Urobilinogen +/- 1mg Bedside Urine Nitrite - Negative Bedside Urine Leukocytes + 70 Esterase Discharge Plan Departure Patient Disposition: Home Clinical Impression: Colitis Discharge Date/Time: 09/03/19 15:32 Instructions: DI for Abdominal Pain-Adult, DI for Colitis Activity Restrictions/Additional Instructions: You have been diagnosed with [colitis in splenic flexure and descending colon. Urine culture is pending. Lab tests are unremarkable.]. What to do: *Take your medications as directed. Please start Cipro twice a day for next 7 days. It is good idea to take probiotics specially when your taking antibiotic medication to decrease GI symptoms including diarrhea. Cipro has been transmitted to [facility]. *Follow up with your primary care provider in 2-3 days, call for an appointment. Let them know you were seen in the ED and that we asked you to be seen in follow up. If your pain persists, please follow-up with general surgery. *Return to ED if you have any new, worsening, or concerning symptoms, such as [fever, worsening pain, chest pain, breathing difficulty, blood in your stool or vomit, unable to tolerate fluids or any acute concerns]. Prescriptions: New ciprofloxacin HCl [Cipro] 500 mg tablet 500 mg PO BID 7 Days Qty: 14 RF: 0 No Action omeprazole 40 mg capsule,delayed release(DR/EC) 40 mg PO DAILY Qty: 90 RF: 1 lisinopril 20 mg tablet 20 mg PO DAILY Qty: 90 RF: 1 propranolol 40 mg tablet 40 mg PO BID Qty: 60 RF: 0 cholecalciferol (vitamin D3) 1,000 unit capsule 1,000 unit PO DAILY RF: 0 One Daily For Women 18-0.4 mg Tablet 1 tab PO DAILY Qty: 0 RF: 0 Referrals: [facility] [Provider Group] Sunny Pimentel MD [Primary Care Provider] -
== END 2019-09-03 15:32 | disposition home or self-care (01) ==
PROVIDERS: Emergency Provider Nurse Practitioner Family; PCP Student in an Organized Health Care Education/Training Program
DX: K52.9 Noninfective gastroenteritis and colitis, unspecified (principal)
CPT/HCPCS: 36415; 74177; 80053; 81003; 81015; 83605; 83690; 85025; 87086; 96360; 96361; 99284; Q9967

== ENCOUNTER → 2020-06-05 11:14 | Outpatient (CLI) | payer OTHER, SELFPAY ==
--- NOTE | 2020-06-05 | DI.MG.S_ITS ---
BILATERAL DIGITAL SCREENING MAMMOGRAM 3D/2D WITH CAD: 06/05/2020 CLINICAL: Routine screening. Comparison is made to exam dated: 07/08/2018 [facility]. The tissue of both breasts is heterogeneously dense. This may lower the sensitivity of mammography. Current study was also evaluated with a Computer Aided Detection (CAD) system. No significant masses, calcifications, or other findings are seen in either breast. There has been no significant interval change. IMPRESSION: NEGATIVE There is no mammographic evidence of malignancy. A 1 year screening mammogram is recommended. This exam was interpreted at Station ID: [id number]. NOTE: For mammograms, a report in lay terms will be sent to the patient. Approximately 15% of breast malignancies will not be visualized mammographically. In the management of a palpable breast mass, a negative mammogram must not discourage biopsy of a clinically suspicious lesion. Electronically Signed By: Patrick hodges/shauna:06/05/2020 12:17:51 letter sent: Normal Exam ACR BI-RADS Category 1: Negative [id number]
== END ==
PROVIDERS: PCP Student in an Organized Health Care Education/Training Program; Referring Provider Student in an Organized Health Care Education/Training Program; Visit Provider Student in an Organized Health Care Education/Training Program
DX: Z12.31 Encounter for screening mammogram for malignant neoplasm of breast (principal)
CPT/HCPCS: 77063; 77067

== ENCOUNTER → 2020-06-20 10:04 | Outpatient (CLI) | payer OTHER, SELFPAY ==
[2020-06-20] MEDS: COVID-19 VACC #1, MRNA(MOD) 100 MCG/0.5 ML VIAL IM (10:13)
== END ==
PROVIDERS: PCP Student in an Organized Health Care Education/Training Program; Visit Provider Internal Medicine
DX: Z23 Encounter for immunization (principal)
CPT/HCPCS: 0011A; 91301

== ENCOUNTER → 2020-07-18 09:47 | Outpatient (CLI) | payer OTHER, SELFPAY ==
[2020-07-18] MEDS: COVID-19 VACC #2, MRNA(MOD) 100 MCG/0.5 ML VIAL IM (09:55)
== END ==
PROVIDERS: PCP Student in an Organized Health Care Education/Training Program; Visit Provider Internal Medicine
DX: Z23 Encounter for immunization (principal)
CPT/HCPCS: 0012A; 91301

== ENCOUNTER 2020-12-04 19:47 | Emergency (ER) | payer OTHER, SELFPAY ==
[2020-12-04 19:51] VITALS: BP 134/62; PULSE 82; RESP 22; TEMP 36.3; O2SAT 98; BMI 29.5
[2020-12-04 21:24] VITALS: PULSE 89; O2SAT 97
[2020-12-04 21:25] VITALS: BP 140/69; PULSE 89; O2SAT 97
--- NOTE | 2020-12-04 22:58 | ED.BACK ---
HPI - Back Pain/Injury General Chief Complaint: Back Pain/Injury Stated Complaint: back pain Time Seen by Provider: 12/04/20 22:34 Source: patient Limitations: no limitations History of Present Illness HPI Narrative: 65-year-old woman with history of high blood pressure and reflux presents with significant left-sided back spasm. Apparently she slept on the couch and woke up in an odd cramped position yesterday morning experienced increasing left-sided lower lumbar spasm that is increased over the last 36 hours. She has not tried any pain medications at home. She finds that it is difficult to stand because of the pain. She has never had similar findings. She does not have a history of chronic back issues. She describes no fevers, no traumas, no history of cancers, no change to bowel or bladder habits, no numbness or paresthesias and has no history of IV drug use. No dysuria, abdominal pain, constipation or diarrhea. No chest pain or palpitations. Related Data Home Medications Medication Instructions Recorded Confirmed cholecalciferol (vitamin D3) 25 1,000 unit PO DAILY 05/18/18 07/18/20 mcg (1,000 unit) capsule lmraycvz-sbnu-aui-folic acid 18 1 tab PO DAILY #0 10/04/18 07/18/20 mg-0.4 mg tablet (One Daily For Women) Previous Rx's Medication Instructions Recorded omeprazole 40 mg capsule,delayed 40 mg PO DAILY #90 cap 08/19/18 release propranolol 60 mg capsule,24 60 mg PO DAILY #90 cap 04/18/20 hr,extended release hydrochlorothiazide 25 mg tablet 25 mg PO DAILY #90 tab 08/22/20 losartan 50 mg tablet 50 mg PO DAILY #90 tab 12/03/20 oxycodone-acetaminophen 5 mg-325 1 tab PO Q6H PRN #12 tab 12/04/20 mg tablet Allergies Allergy/AdvReac Type Severity Reaction Status Date / Time No Known Drug Allergies Allergy Verified 12/04/20 19:50 Review of Systems Review of Systems Narrative: Remainder of complete review of systems is otherwise unremarkable except for that included in the HPI. Patient History Medical History (Updated 12/04/20 @ 23:03 by Lexus Jc MD) Anxiety Chicken pox Depression Difficulty breathing Family history of bipolar disorder Foot pain Headache Hearing loss Heartburn History of urinary incontinence Irregular menstrual cycle Measles Mumps Nail fungus Onychomycosis Vision disorder Surgical History history Anesthesia History of section History of surgery History of Family History Father No problems noted. Mother Diabetes mellitus Frail elderly Sister Family history of thyroid problem Mental health problem Sister Stroke Social History household members: spouse Smoking Status: Never smoker alcohol intake: current substance use type: marijuana Smoking Status: Never smoker alcohol intake frequency: 0-2 drinks per day Alcohol type: wine Substance Use Type: marijuana Exam Narrative Exam Narrative: General: Alert appropriate in no acute distress Respiratory: Able to speak in full sentences, no obvious respiratory distress Cardiac: Regular rate and rhythm no murmurs Abdomen: Soft, nontender nondistended good bowel tones Skin: No obvious rashes, warm and dry Neurologic: Grossly intact no obvious asymmetries or abnormalities. Full sensation to lower extremities. 2+ reflexes at patella as and ankle jerks bilaterally. Spine: Paraspinous spasm appreciated on the left side from approximately L1-L4. No skin rashes or changes. No overt flank pain. Psych: appropriate insight and affect, cooperative Initial Vital Signs Initial Vital Signs: Vital Signs Temperature 97.4 F L 12/04/20 19:51 Pulse Rate 82 12/04/20 19:51 Respiratory Rate 22 12/04/20 19:51 Blood Pressure 134/62 12/04/20 19:51 Pulse Oximetry 98 12/04/20 19:51 Course Orders Ordered: Discontinued Medications Ibuprofen (Ibuprofen 400 Mg Tablet) 400 mg PO NOW ONE Stop: 12/04/20 22:58 Last Admin: 12/04/20 23:04 Dose: 400 mg Documented by: HALI Oxycodone/Acetaminophen (Oxycodone/Acetaminophen 5/325 Tablet) 1 tab PO NOW ONE Stop: 12/04/20 22:58 Last Admin: 12/04/20 23:04 Dose: 1 tab Documented by: HALI Oxycodone/Acetaminophen (Oxycodone/Apap 5/325 Prepack) 1 bottle MISC SEEINSTR ONE Stop: 12/04/20 22:59 Last Admin: 12/04/20 23:04 Dose: 1 bottle Documented by: HALI Vital Signs Vital signs: Vital Signs - 8 hr 12/04/20 19:51 12/04/20 21:24 12/04/20 21:25 Temperature 97.4 F L Pulse Rate 82 89 89 Respiratory Rate 22 Blood Pressure 134/62 140/69 Pulse Oximetry 98 97 97 MDM - Back Pain/Injury MDM Narrative Medical decision making narrative: 65-year-old woman who slept in an odd position and is experiencing left lumbar spasm with no red flags to suggest additional imaging or workup is needed. She is given ibuprofen and Percocet in the emergency department with moderately relief of pain. Will be given a brief course of Percocet to use at home. She will be safe for home discharge Discharge Plan Departure Patient Disposition: Home Clinical Impression: Lumbar spine strain Qualifiers: Encounter type: initial encounter Qualified Code(s): S39.012A - Strain of muscle, fascia and tendon of lower back, initial encounter Instructions: DI for Muscle Strain Activity Restrictions/Additional Instructions: Thank you for coming in today I am sorry that your having this back pain. I a.m. reassured that you do not have any additional signs or symptoms concerning of for infection, acute nerve compression or fractures. Using 400 mg of ibuprofen (2 avvg-shv-uoqwnap pills) and 1 Tylenol every 6 hours can be very helpful in controlling pain. For severe pain, you can use to ibuprofen and 1 Percocet. Percocet does have Tylenol and a narcotic in it. It will cause constipation. Please make sure your including extra fiber or stool softener each day that you use Percocet. Prescription was electronically transmitted to [facility] in an a [place] for you this evening Ice and heat can also be helpful. If you have new or worsening symptoms please feel free to return to the emergency department. I hope you feel better Prescriptions: New oxycodone-acetaminophen 5-325 mg tablet 1 tab PO Q6H PRN (Reason: pain) Qty: 12 RF: 0 No Action omeprazole 40 mg capsule,delayed release(DR/EC) 40 mg PO DAILY Qty: 90 RF: 1 propranolol 60 mg capsule,extended release 24 hr 60 mg PO DAILY Qty: 90 RF: 3 hydrochlorothiazide 25 mg tablet 25 mg PO DAILY Qty: 90 RF: 1 losartan 50 mg tablet 50 mg PO DAILY Qty: 90 RF: 3 cholecalciferol (vitamin D3) 1,000 unit capsule 1,000 unit PO DAILY RF: 0 One Daily For Women 18-0.4 mg Tablet 1 tab PO DAILY Qty: 0 RF: 0 Referrals: Sunny Pimentel MD [Primary Care Provider] -
[2020-12-04] MEDS: OXYCODONE/APAP 5/325 PREPACK 1 BOTTLE MISC (23:04)
[2020-12-04] MEDS: OXYCODONE/ACETAMINOPHEN 5/325 TABLET 1 TAB PO (23:04)
[2020-12-04] MEDS: IBUPROFEN 400 MG TABLET PO (23:04)
== END 2020-12-05 00:04 | disposition home or self-care (01) ==
PROVIDERS: Emergency Provider Emergency Medicine; PCP Student in an Organized Health Care Education/Training Program
DX: S39.012A Strain of muscle, fascia and tendon of lower back, initial encounter (principal); X50.1XXA Overexertion from prolonged static or awkward postures, initial encounter
CPT/HCPCS: 99283

== ENCOUNTER 2021-04-02 14:30 | Outpatient (RCR) | payer OTHER, SELFPAY ==
--- NOTE | 2021-03-28 16:37 | PT.OIE ---
Current Diagnoses Strain of muscle, fascia and tendon of lower back, initial encounter (03/28/21) Past Medical History (Last Reviewed 12/04/20 @ 22:59 by Lexus Jc MD) Anxiety Chicken pox Depression Difficulty breathing Family history of bipolar disorder Foot pain Headache Hearing loss Heartburn History of section History of surgery History of urinary incontinence Irregular menstrual cycle Measles Mumps Nail fungus Onychomycosis Vision disorder Past Surgical History (Last Reviewed 12/04/20 @ 22:59 by Lexus Jc MD) history Anesthesia History of section History of surgery History of Visit Care Team Role Provider Type Sunny Pimentel MD Attending Provider Physician Family Provider Primary Care Provider Referring Provider Specialty: Internal Medicine Address: [address] [place] [address], [address], [facility] Email: [email or web address] Physical Therapy Initial Evaluation PT-OP-A Visit Information Start: 03/28/21 16:20 Freq: Status: Active Protocol: Document 03/28/21 12:20 DCW (Rec: 03/28/21 16:37 [facility] [id number]) Out-Patient Physical Therapy Visit Information Visit Information Visit Type Initial Evaluation Visit Note Pt arrived 20 minutes late Visit Start Time 12:20 Visit Stop Time 12:45 Total Visit Minutes 25 Visit Number 1 Number of MANAGER SERVICES Visits 0 Evaluation Information Evaluation Date 03/28/21 PT-OP-B Current Condition Start: 03/28/21 16:20 Freq: Status: Active Protocol: Document 03/28/21 12:20 DCW (Rec: 03/28/21 16:37 [facility] [id number]) Current Condition History of Current Condition Onset Date 12/03/20 Current Complaints Low back spasm History of Current Condition Pt is a 65 year old female presenting with complaints of occasional low back tightness. Pt reports it began 12/03/20, she woke up with back pain out of the blue. Notes that it was not too bad the first day, but by the second day, she was in immense pain, and was unable to even get up to eat. She went to the ED, was given some pain pills, and the back pain rather quickly resolved over the next few days. Notes back pain returned a few months later, not as bad, and again resolved . Pt is coming to PT now in hopes to receive instruction for stretches to perform to either decrease potential for returning spasm, or learn what to do if it does come back. Pt has no actual complaints of pain, stiffness, or decreased ability to participate in ADLs at this time. Treatment Goals Patient/Caregiver Goals HEP to decrease low back muscle spasm Prior Functional Status Baseline Function- ADL's Independent Baseline Function- Mobility Independent PT-OP-C Subjective Start: 03/28/21 16:20 Freq: Status: Active Protocol: Document 03/28/21 12:20 DCW (Rec: 03/28/21 16:37 DCW [id number]) OP-PT Subjective Patient Comments Patient Comments When it's flaired up, it hard to get around. Stairs are difficult. Patient Reported Progress Improving Patient Questionnaires Oswestry Low Back Index Oswestry Score 3/50 = 6% Oswestry Impairment 1 to 19% Impaired (Score 1-19) PT-OP-F Manual Assessment Start: 03/28/21 16:20 Freq: Status: Active Protocol: Document 03/28/21 12:20 DCW (Rec: 03/28/21 16:37 DCW [id number]) Manual Assessments Soft Tissue Assessment Soft Tissue Mobility Assessment Mild tone with tenderness to palpation 1/4 - complaint of pain along L QL PT-OP-K Range of Motion Start: 03/28/21 16:20 Freq: Status: Active Protocol: Document 03/28/21 12:20 DCW (Rec: 03/28/21 16:37 DCW [id number]) Lumbar Spine Range of Motion Lumbar Spine Active Percentage Testing Position Standing Comments Pt able to bend over with knees fully extended and place hands on floor. Lateral flexion and rotation WNL PT-OP-M Strength Start: 03/28/21 16:20 Freq: Status: Active Protocol: Document 03/28/21 12:20 DCW (Rec: 03/28/21 16:37 DCW [id number]) Hip Strength Hip Manual Muscle Testing Bilateral Flexion (L2) 5 Normal Abduction 5 Normal Adduction 5 Normal Knee Strength Knee Manual Muscle Testing Bilateral Flexion (S2) 5 Normal Extension (L3) 5 Normal PT-OP-Q Treatments Start: 03/28/21 16:20 Freq: Status: Active Protocol: Document 03/28/21 12:20 DCW (Rec: 03/28/21 16:37 [facility] [id number]) Therapeutic Exercises Sitting Exercises 2 Sitting Exercise Name Seated lumbar lateral flexion 1 Sitting Exercise Name Seated lumbar flexion Standing Exercises 1 Standing Exercise Name Rows Resistance Lv 3 Equipment Used T-band Other Exercises 1 Other Exercise Name Cat/Camel PT-OP-T Assessment and Plan Start: 03/28/21 16:20 Freq: Status: Active Protocol: Document 03/28/21 12:20 DCW (Rec: 03/28/21 16:37 [facility] [id number]) Physical Therapy Assessment Rehab Potential Rehabilitation Potential Excellent Evaluation Complexity Number of Personal Factors/Comorbidities 0 Number of Body Systems Impaired 1-2 Clinical Presentation at Evaluation Stable Impairments Impairments Soft Tissue Mobility Goals One Impairment Pt does not have an appropriate home exercise program Short Term Goal (STG) Pt to demonstrate understanding of appropriate HEP in order to prevent or less effects from low back spasm STG Duration 04/28/21 Assessment Summary Assessment Pt presents with no complaints of pain, stiffness, or limitations in ADLs. Pt has a history of occasional spasm through left QL, which remains mildly tight at this time, but does not affect her in any way at the moment. Pt's goal for PT is to learn specific stretches she can do when it begins to bother her in case it recurs. Appropriate for pt to attend 1-2 more sessions for instruction in HEP and to address lingering questions. Pt unlikely to require much more than 1-2 visits. Physical Therapy Plan Frequency and Duration Frequency of Treatment 2x/Week Duration of Treatment 2 weeks Plan of Care Start Date 03/28/21 Plan of Care End Date 04/11/21 Therapeutic Interventions Therapeutic Interventions Home Exercise Program,Patient/ Caregiver Education,Self-Care/ Home Management,Therapeutic Exercises Next Visit Focus/Plan Next Note Type Treatment Note Next Visit Plan Lumbar flexibility, core strengthening
--- NOTE | 2021-03-28 16:38 | PT.OPPOC ---
Physical, Occupational & Speech Therapy At [facility] Current Diagnoses Strain of muscle, fascia and tendon of lower back, initial encounter (03/28/21) Visit Care Team Role Provider Type Sunny Pimentel MD Attending Provider Physician Family Provider Primary Care Provider Referring Provider Specialty: Internal Medicine Address: [address] [place] [address], [id number] Email: [email or web address] Plan Of Care PT-OP-T Assessment and Plan Start: 03/28/21 16:20 Freq: Status: Active Protocol: Document 03/28/21 12:20 DCW (Rec: 03/28/21 16:37 DCW [id number]) Physical Therapy Assessment Rehab Potential Rehabilitation Potential Excellent Evaluation Complexity Number of Personal Factors/Comorbidities 0 Number of Body Systems Impaired 1-2 Clinical Presentation at Evaluation Stable Impairments Impairments Soft Tissue Mobility Goals One Impairment Pt does not have an appropriate home exercise program Short Term Goal (STG) Pt to demonstrate understanding of appropriate HEP in order to prevent or less effects from low back spasm STG Duration 04/28/21 Assessment Summary Assessment Pt presents with no complaints of pain, stiffness, or limitations in ADLs. Pt has a history of occasional spasm through left QL, which remains mildly tight at this time, but does not affect her in any way at the moment. Pt's goal for PT is to learn specific stretches she can do when it begins to bother her in case it recurs. Appropriate for pt to attend 1-2 more sessions for instruction in HEP and to address lingering questions. Pt unlikely to require much more than 1-2 visits. Physical Therapy Plan Frequency and Duration Frequency of Treatment 2x/Week Duration of Treatment 2 weeks Plan of Care Start Date 03/28/21 Plan of Care End Date 04/11/21 Therapeutic Interventions Therapeutic Interventions Home Exercise Program,Patient/ Caregiver Education,Self-Care/ Home Management,Therapeutic Exercises Next Visit Focus/Plan Next Note Type Treatment Note Next Visit Plan Lumbar flexibility, core strengthening Plan of Care Dates Plan of Care Start Date 03/28/21 Plan of Care End Date 04/11/21 Electronically Signed by: Asher García, PT 03/28/21 [id number] Please Sign and Return: I have reviewed this Plan of Care and certify that the skilled therapy services above are required to meet the patient?s needs. Physician Signature Date Printed Name and Credentials Clinical Instructor Signature Printed Name and Credentials
--- NOTE | 2021-04-02 14:59 | PT.OTN ---
Current Diagnoses Strain of muscle, fascia and tendon of lower back, initial encounter (04/02/21) Physical Therapy Treatment Note PT-OP-A Visit Information Start: 03/28/21 16:20 Freq: Status: Active Protocol: Document 04/02/21 14:35 DCW (Rec: 04/02/21 14:59 DCW [id number]) Out-Patient Physical Therapy Visit Information Visit Information Visit Type Treatment Note Visit Note 5 min late Visit Start Time 14:35 Visit Stop Time 15:00 Total Visit Minutes 25 Visit Number 2 Number of PHYSICAL THERAPY AIDES TEACHER Visits 0 Evaluation Information Evaluation Date 03/28/21 PT-OP-B Current Condition Start: 03/28/21 16:20 Freq: Status: Active Protocol: Document 03/28/21 12:20 DCW (Rec: 03/28/21 16:37 DCW [id number]) Current Condition History of Current Condition Onset Date 12/03/20 Current Complaints Low back spasm History of Current Condition Pt is a 65 year old female presenting with complaints of occasional low back tightness. Pt reports it began 12/03/20, she woke up with back pain out of the blue. Notes that it was not too bad the first day, but by the second day, she was in immense pain, and was unable to even get up to eat. She went to the ED, was given some pain pills, and the back pain rather quickly resolved over the next few days. Notes back pain returned a few months later, not as bad, and again resolved . Pt is coming to PT now in hopes to receive instruction for stretches to perform to either decrease potential for returning spasm, or learn what to do if it does come back. Pt has no actual complaints of pain, stiffness, or decreased ability to participate in ADLs at this time. Treatment Goals Patient/Caregiver Goals HEP to decrease low back muscle spasm Prior Functional Status Baseline Function- ADL's Independent Baseline Function- Mobility Independent PT-OP-C Subjective Start: 03/28/21 16:20 Freq: Status: Active Protocol: Document 04/02/21 14:35 DCW (Rec: 04/02/21 14:59 DCW [id number]) OP-PT Subjective Patient Comments Patient Comments Pt feels fine, I've been doing my exercises. PT-OP-F Manual Assessment Start: 03/28/21 16:20 Freq: Status: Active Protocol: Document 03/28/21 12:20 DCW (Rec: 03/28/21 16:37 DCW [id number]) Manual Assessments Soft Tissue Assessment Soft Tissue Mobility Assessment Mild tone with tenderness to palpation 1/4 - complaint of pain along L QL PT-OP-K Range of Motion Start: 03/28/21 16:20 Freq: Status: Active Protocol: Document 03/28/21 12:20 DCW (Rec: 03/28/21 16:37 DCW [id number]) Lumbar Spine Range of Motion Lumbar Spine Active Percentage Testing Position Standing Comments Pt able to bend over with knees fully extended and place hands on floor. Lateral flexion and rotation WNL PT-OP-M Strength Start: 03/28/21 16:20 Freq: Status: Active Protocol: Document 03/28/21 12:20 DCW (Rec: 03/28/21 16:37 DCW [id number]) Hip Strength Hip Manual Muscle Testing Bilateral Flexion (L2) 5 Normal Abduction 5 Normal Adduction 5 Normal Knee Strength Knee Manual Muscle Testing Bilateral Flexion (S2) 5 Normal Extension (L3) 5 Normal PT-OP-Q Treatments Start: 03/28/21 16:20 Freq: Status: Active Protocol: Document 04/02/21 14:35 DCW (Rec: 04/02/21 14:59 DCW [id number]) Therapeutic Exercises Sitting Exercises 2 Sitting Exercise Name Seated lumbar lateral flexion 1 Sitting Exercise Name Seated lumbar flexion Standing Exercises 1 Standing Exercise Name Rows Resistance Lv 3 Equipment Used T-band Other Exercises 1 Other Exercise Name Cat/Camel PT-OP-T Assessment and Plan Start: 03/28/21 16:20 Freq: Status: Active Protocol: Document 04/02/21 14:35 DCW (Rec: 04/02/21 14:59 DCW [id number]) Physical Therapy Assessment Goals One Impairment Pt does not have an appropriate home exercise program Short Term Goal (STG) Pt to demonstrate understanding of appropriate HEP in order to prevent or less effects from low back spasm STG Duration Met Assessment Summary Assessment Pt demonstrates appropriate use of HEP, continues to report no return of pain or stiffness in low back. Pt appropriate to discharge from skilled therapy at this time. Physical Therapy Plan Frequency and Duration Frequency of Treatment 2x/Week Duration of Treatment 2 weeks Plan of Care Start Date 03/28/21 Plan of Care End Date 04/11/21 Therapeutic Interventions Therapeutic Interventions Home Exercise Program,Patient/ Caregiver Education,Self-Care/ Home Management,Therapeutic Exercises Discharge Physical Therapy Discharge Reasons Goals Met Next Visit Focus/Plan Next Note Type Discharge Summary
== END 2021-04-23 08:33 ==
LOC: PHYS 14:30
PROVIDERS: Family Provider Student in an Organized Health Care Education/Training Program; PCP Student in an Organized Health Care Education/Training Program; Referring Provider Student in an Organized Health Care Education/Training Program; Visit Provider Student in an Organized Health Care Education/Training Program
DX: S39.012A Strain of muscle, fascia and tendon of lower back, initial encounter (principal)
CPT/HCPCS: 97110; 97161

== ENCOUNTER → 2021-10-30 15:55 | Outpatient (CLI) | payer MEDICARE, SELFPAY ==
[2021-10-30 17:13] LABS: BUN Creatinine Ratio 22.2 (6-22); Blood Urea Nitrogen 20 mg/dL (7-17); Calcium 9.3 mg/dL (8.4-10.2); Carbon Dioxide 30 mmol/L (22-32); Chloride 103 mmol/L (98-107); Estimated Glomerular Filt Rate > 60 mL/min (>60); Glucose 90 mg/dL (80-110); HEMOLYSIS < 15 (0-50); Sodium 138 mmol/L (137-145)
[2021-10-30 17:34] LABS: Creatinine Urine Random 62.4 mg/dL
[2021-10-30 17:39] LABS: Microalbumin Urine Random < 0.6 mg/dL (0-1.6)
[2021-10-31 22:00] LABS: Hep C Virus Ab w/Reflex Quant NEGATIVE s/c (NEGATIVE)
== END ==
PROVIDERS: Family Provider Student in an Organized Health Care Education/Training Program; PCP Student in an Organized Health Care Education/Training Program; Referring Provider Student in an Organized Health Care Education/Training Program; Visit Provider Student in an Organized Health Care Education/Training Program
DX: I10 Essential (primary) hypertension (principal); Z11.59 Encounter for screening for other viral diseases
CPT/HCPCS: 36415; 80048; 82043; 82570; 86803

== ENCOUNTER → 2022-01-01 12:51 | Outpatient (CLI) | payer MEDICARE, SELFPAY | PROVIDERS: Family Provider Student in an Organized Health Care Education/Training Program; PCP Student in an Organized Health Care Education/Training Program; Referring Provider Student in an Organized Health Care Education/Training Program; Visit Provider Student in an Organized Health Care Education/Training Program | DX: Z78.0 Asymptomatic menopausal state (principal); Z13.820 Encounter for screening for osteoporosis; M85.851 Other specified disorders of bone density and structure, right thigh | CPT/HCPCS: 77080 ==

== ENCOUNTER → 2022-06-24 15:30 | Outpatient (CLI) | payer MEDICARE, SELFPAY ==
--- NOTE | 2022-06-24 15:33 | DI.MG.S_ITS ---
BILATERAL DIGITAL SCREENING MAMMOGRAM 3D/2D WITH CAD: 06/24/2022 CLINICAL: Routine screening. Comparison is made to exams dated: 06/05/2020 mammogram and 07/08/2018 mammogram - [facility]. Both breasts are heterogeneously dense, which may obscure small masses (category c / 51-75% glandular tissue). Current study was also evaluated with a Computer Aided Detection (CAD) system. No significant masses, calcifications, or other findings are seen in either breast. There has been no significant interval change. IMPRESSION: NEGATIVE There is no mammographic evidence of malignancy. A 1 year screening mammogram is recommended. Based on the Tyrer Cuzick model (a risk assessment model) the patient's lifetime risk is 10.8% and her 10 year risk is 5.5%. According to the ACR, ACS, and NCCN guidelines, an annual breast MRI exam along with mammogram is recommended if the patient's lifetime risk is 20% or greater. This exam was interpreted at Station ID: [id number]. NOTE: For mammograms, a report in lay terms will be sent to the patient. Approximately 15% of breast malignancies will not be visualized mammographically. In the management of a palpable breast mass, a negative mammogram must not discourage biopsy of a clinically suspicious lesion. Electronically Signed By: Sonu salamanca/shauna:06/25/2022 07:56:32 letter sent: Normal Exam ACR BI-RADS Category 1: Negative [id number]
== END ==
PROVIDERS: Family Provider Student in an Organized Health Care Education/Training Program; PCP Student in an Organized Health Care Education/Training Program; Referring Provider Student in an Organized Health Care Education/Training Program; Visit Provider Student in an Organized Health Care Education/Training Program
DX: Z12.31 Encounter for screening mammogram for malignant neoplasm of breast (principal)
CPT/HCPCS: 77063; 77067

== ENCOUNTER → 2023-09-22 10:45 | Outpatient (CLI) | payer MEDICARE, SELFPAY ==
[2023-09-22 11:15] LABS: Add Manual Diff / Slide Review NO; Basophils Absolute Auto 100 /uL (0-100); Basophils Percent Auto 1.1 % (0-2); Eosinophils Absolute Auto 200 /uL (0-450); Eosinophils Percent Auto 3.9 % (2-4); Hematocrit 36.6 % (36-46); Hemoglobin 12.7 g/dL (12.0-16.0); Lymphocytes Absolute Auto 1900 /uL (1100-4500); Lymphocytes Percent Auto 35.1 % (25-40); Mean Corpuscular HGB Conc 34.6 % (30-36); Mean Corpuscular Hemoglobin 32.9 PG (26-34); Mean Corpuscular Volume 95.1 fL (80-100); Monocytes Absolute Auto 500 /uL (0-900); Monocytes Percent Auto 9.3 % (3-14); Neutrophils Absolute Auto 2700 /uL (1500-7000); Neutrophils Percent Auto 50.6 % (50-75); Platelet Count 283 X10^3/uL (150-400); Red Blood Cell Count 3.85 X10^6/uL (4.0-5.2); Red Cell Distribution Width 13.1 % (11.6-14.8); White Blood Cell Count 5.4 X10^3/uL (4.5-11.0)
[2023-09-22 11:44] LABS: Alanine Aminotransferase 23 IU/L (<35); Albumin 4.1 g/dL (3.5-5.0); Albumin Globulin Ratio 1.4 (1.0-2.8); Alkaline Phosphatase 106 U/L (38-126); Aspartate Aminotransferase 30 IU/L (14-36); BUN Creatinine Ratio 19.4 (6-22); Bilirubin Total 1.1 mg/dL (0.2-1.3); Blood Urea Nitrogen 21 mg/dL (7-17); Calcium 9.5 mg/dL (8.4-10.2); Carbon Dioxide 30 mmol/L (22-32); Chloride 102 mmol/L (98-107); Cholesterol 205 mg/dL (140-199); Estimated Glomerular Filt Rate 56 mL/min (>60); Glucose 116 mg/dL (80-110); HDL Cholesterol 61 mg/dL (40-60); HEMOLYSIS < 15 (0-50); LDL Cholesterol Calculated 121 mg/dL (<100); Potassium 3.6 mmol/L (3.4-5.1); Sodium 137 mmol/L (137-145); Total Protein 7.1 g/dL (6.3-8.2); Triglycerides 114 mg/dL (35-150)
== END ==
LOC: LAB 10:46
PROVIDERS: Family Provider Student in an Organized Health Care Education/Training Program; PCP Family Medicine; Referring Provider Family Medicine; Visit Provider Family Medicine
DX: E66.9 Obesity, unspecified (principal); I10 Essential (primary) hypertension; E78.00 Pure hypercholesterolemia, unspecified; K21.9 Gastro-esophageal reflux disease without esophagitis
CPT/HCPCS: 36415; 80053; 80061; 85025

== ENCOUNTER → 2023-10-31 11:45 | Outpatient (CLI) | payer MEDICARE, SELFPAY ==
--- NOTE | 2023-10-31 | DI.MG.S_ITS ---
BILATERAL DIGITAL SCREENING MAMMOGRAM 3D/2D WITH CAD: 10/31/2023 CLINICAL: Routine screening. Comparison is made to exams dated: 06/24/2022 mammogram, 06/05/2020 mammogram, and 07/08/2018 mammogram - [facility]. Both breasts are heterogeneously dense, which may obscure small masses (category c / 51-75% glandular tissue). Current study was also evaluated with a Computer Aided Detection (CAD) system. No significant masses, calcifications, or other findings are seen in either breast. There has been no significant interval change. IMPRESSION: NEGATIVE There is no mammographic evidence of malignancy. A 1 year screening mammogram is recommended. Based on the Tyrer Cuzick model (a risk assessment model) the patient's lifetime risk is 9.7% and her 10 year risk is 5.4%. According to the ACR, ACS, and NCCN guidelines, an annual breast MRI exam along with mammogram is recommended if the patient's lifetime risk is 20% or greater. This exam was interpreted at Station ID: [id number]. NOTE: For mammograms, a report in lay terms will be sent to the patient. Approximately 15% of breast malignancies will not be visualized mammographically. In the management of a palpable breast mass, a negative mammogram must not discourage biopsy of a clinically suspicious lesion. Electronically Signed By: Pat keith/shauna:11/02/2023 11:41:38 letter sent: Normal Exam ACR BI-RADS Category 1: Negative [id number]
== END ==
PROVIDERS: Family Provider Student in an Organized Health Care Education/Training Program; PCP Family Medicine; Referring Provider Family Medicine; Visit Provider Family Medicine
DX: Z12.31 Encounter for screening mammogram for malignant neoplasm of breast (principal); R92.333 Mammographic heterogeneous density, bilateral breasts
CPT/HCPCS: 77063; 77067

== ENCOUNTER → 2024-05-24 13:19 | Outpatient (CLI) | payer MEDICARE, SELFPAY ==
--- NOTE | 2024-05-24 13:40 | DI.RAD.S_ITS ---
PROCEDURE: XR DEXA AXIAL SKELETON INDICATIONS: osteoporosis screening COMPARISON: [facility], CR, XR DEXA AXIAL SKELETON, 01/01/2022, 13:10. FINDINGS: Lumbar Spine: Bone mineral density 0.974 (previously 0.965) g/cm2, T score -0.7 (previously-0.7). Left Femoral Neck: Bone mineral density 0.660 (previously 0.726) g/cm2, T score -1.7 (previously-1.1) Left Hip: Bone mineral density 0.788 (previously 0.859) g/cm2, T score -1.3 (previously -0.7). Fracture Risk Calculation (when applicable): 10-year fracture risk of a major osteoporotic fracture 19 percent and of a hip fracture 3.7 percent. (T score greater or equal to -1.0 to: NORMAL) (T score from -1.1 to -2.4: OSTEOPENIA) (T score less than or equal to -2.5: OSTEOPOROSIS) IMPRESSION: Osteopenia---recommend repeat DEXA in 2-3 years for reassessment. Follow-up guidelines as follows: Osteoporosis: Consider a repeat DEXA and Vertebral Fracture Assessment (VFA) exam in 2 years or sooner if medically necessary, to reassess this patient's status. Osteopenia: Consider a repeat DEXA in 2-3 years to reassess this patient's status, or if there is a new clinical indication. Normal: Consider a repeat DEXA in 5 years or sooner, or if there is a new clinical indication. All treatment decisions require clinical judgment and consideration of individual patient factors, including patient preferences, comorbidities, previous drug use, risk factors not captured in the FRAX model (e.g., frailty, falls, vitamin D deficiency, increased bone turnover, interval significant decline in bone density ) and possible under- or over-estimation of fracture risk by FRAX. In addition, the NOF Guide recommends that FDA-approved medical therapies be considered in postmenopausal women and men age >= 50 years with a: * Hip or vertebral (clinical or morphometric) fracture * T-score of <=-2.5 at the spine or hip * Ten-year fracture probability by FRAX of >= 3% for hip fracture or >=20% for major osteoporotic fracture. Dictated by: Micky Greenwood M.D. on 05/24/2024 at 17:13 Approved by: Micky Greenwood M.D. on 05/24/2024 at 17:15
== END ==
PROVIDERS: Family Provider Student in an Organized Health Care Education/Training Program; PCP Family Medicine; Referring Provider Family Medicine; Visit Provider Family Medicine
DX: Z13.820 Encounter for screening for osteoporosis (principal); M85.852 Other specified disorders of bone density and structure, left thigh
CPT/HCPCS: 77080

== ENCOUNTER → 2024-11-25 15:09 | Outpatient (CLI) | payer MEDICARE, SELFPAY ==
--- NOTE | 2024-11-25 15:10 | DI.MG.S_ITS ---
MM screening mammo BI: 11/25/2024. BI-RADS: 0 CLINICAL: 69-year old female for bilateral screening mammogram. Tyrer-Cuzick lifetime risk of 18.8%. Current reported family history of breast cancer: sister and maternal uncle's daughter. PRIOR EXAMS 10/31/2023, 06/24/2022, 06/05/2020, 07/08/2018. MAMMOGRAPHY TECHNIQUE: 2D and 3D (tomosynthesis) digital mammographic views obtained, with additional images as needed for full coverage. Current study was also evaluated with a Computer Aided Detection (CAD) system. DENSITY C. The breasts are heterogeneously dense, which may obscure small masses. MAMMOGRAPHY FINDINGS Right: Upper Outer at 9:30, Middle depth: Focal asymmetry needing additional imaging evaluation. Possible developing asymmetry is noted. Left: No suspicious mass, asymmetry, microcalcification, or other abnormality seen. IMPRESSION: Right (Asymmetry): Upper Outer at 9:30, Middle depth * Incomplete - focal asymmetry needing additional imaging evaluation. Left * No evidence of malignancy. RECOMMENDATIONS Right: Upper Outer at 9:30, Middle depth * Further evaluation with diagnostic mammography and diagnostic ultrasound. Ultrasound to be performed only if needed. OVERALL ASSESSMENT CATEGORY BI-RADS-0: Incomplete - Need Additional Imaging Evaluation. ELECTRONICALLY SIGNED: Ramiro Dawson M.D. on 11/27/2024 at 07:06:15 PM PT Interpreting Station ID: [id number]
== END ==
PROVIDERS: PCP Family Medicine; Referring Provider Family Medicine; Visit Provider Family Medicine
DX: Z12.31 Encounter for screening mammogram for malignant neoplasm of breast (principal); Z80.3 Family history of malignant neoplasm of breast; R92.333 Mammographic heterogeneous density, bilateral breasts
CPT/HCPCS: 77063; 77067

== ENCOUNTER → 2025-01-04 10:18 | Outpatient (CLI) | payer MEDICARE, SELFPAY ==
--- NOTE | 2025-01-04 10:20 | DI.US.S_ITS ---
MM diagnostic mammo unilat RT, US breast RT limited: 01/04/2025 BI-RADS: 2 CLINICAL: 69-year old female for right diagnostic mammogram and right diagnostic breast ultrasound that is a recall from screening on 11/25/2024. Tyrer-Cuzick lifetime risk of 18.8%. Current reported family history of breast cancer: sister and maternal uncle's daughter. PRIOR EXAMS 11/25/2024, 10/31/2023, 06/24/2022, 06/05/2020, 07/08/2018. MAMMOGRAPHY TECHNIQUE: 2D and 3D (tomosynthesis) digital mammographic views obtained, with additional images as needed for full coverage. Current study was also evaluated with a Computer Aided Detection (CAD) system. ULTRASOUND TECHNIQUE Real-time ramos scale imaging of the area of clinical interest was performed with image documentation. TARGETED Right Breast Ultrasound: Real-time ultrasound exam was performed focused to area of clinical and/or imaging concern. DENSITY Right: C. The breast is heterogeneously dense, which may obscure small masses. MAMMOGRAPHY FINDINGS Right: Upper Outer at 9:30, Middle depth: The focal asymmetry seen on recent screening mammogram did not persist with additional imaging and is consistent with superimposition of normal breast tissue. There are no suspicious masses, calcifications, or other findings in the breast. ULTRASOUND FINDINGS Right: Outer at 9:00, 6 cm from nipple: There is no sonographic abnormality to account for imaging concern on mammography. Right: Upper Outer at 10:00, 6 cm from nipple: There is no sonographic abnormality to account for imaging concern on mammography. IMPRESSION: Right * No evidence of malignancy with benign findings. RECOMMENDATIONS Bilateral * Annual screening mammography. COMMENTS: Findings and recommendations were conveyed to the patient during today's evaluation. OVERALL ASSESSMENT CATEGORY BI-RADS-2: Benign. The [employer] recommends annual screening mammography beginning at age 40 for women with average risk of breast cancer. ELECTRONICALLY SIGNED: Fatou Young M.D. on 01/04/2025 at 12:18:21 PM PT Interpreting Station ID: [id number]
== END ==
LOC: MAMMO 10:19
PROVIDERS: PCP Family Medicine; Referring Provider Family Medicine; Visit Provider Family Medicine
DX: N64.89 Other specified disorders of breast (principal); R92.331 Mammographic heterogeneous density, right breast
CPT/HCPCS: 76642; 77065; G0279

== ENCOUNTER 2025-01-29 11:18 | Emergency (ER) | payer MEDICARE, SELFPAY ==
[2025-01-29] VITALS (12 sets, daily range): BP systolic 112–159; BP diastolic 60–104; PULSE 55–88; RESP 12–20; TEMP 36.9; O2SAT 76–99; BMI 31.7
--- NOTE | 2025-01-29 13:45 | ED_ITS ---
HPI - Extremity Problem
--- NOTE | 2025-01-29 13:45 | ED.EXTPRO ---
HPI - Extremity Problem <Naren Silver MD - Last Filed: 01/31/25 12:52> General Chief complaint: Extremity Problem,Nontraumatic Stated complaint: numb arms since yesterday Time Seen by Provider: 01/29/25 12:03 Source: patient Mode of arrival: Ambulatory History of Present Illness HPI Narrative: 69 years old female with history of hypertension came today complaining of bilateral hand pain, mild swelling, tingling sensation in both hands since yesterday morning and the pain shooting up to her both elbows without any chest pain, shortness of breath, fever, runny nose, sore throat, coughing, abdominal pain, nausea vomiting, diarrhea, constipation, leg swelling, weakness on her arms, hands or legs or numbness on her legs. Related Data Home Medications ?Medication ?Instructions ?Recorded ?Confirmed cholecalciferol (vitamin D3) 25 1,000 unit PO DAILY 05/18/18 04/06/24 mcg (1,000 unit) capsule [id number]-mux-folic acid 18 1 tab PO DAILY ##0 10/04/18 04/06/24 mg-0.4 mg tablet (One Daily For Women) Previous Rx's ?Medication ?Instructions ?Recorded esomeprazole magnesium 20 mg 20 mg PO DAILY #30 caps 02/26/23 capsule,delayed release losartan 50 mg tablet 50 mg PO DAILY #90 tabs 06/08/24 propranolol 60 mg capsule,24 60 mg PO DAILY #90 caps 06/08/24 hr,extended release hydrochlorothiazide 25 mg tablet 25 mg PO DAILY #90 tabs 07/05/24 Allergies Allergy/AdvReac Type Severity Reaction Status Date / Time No Known Drug Allergies Allergy Unverified 04/06/24 14:16 Review of Systems <Naren Silver MD - Last Filed: 01/31/25 12:52> Review of Systems Narrative: Positive for slight swelling in both hands, tingling sensation both hands, pain shooting up from both hand to the elbows. Negative for chest pain, shortness of breath, fever, runny nose, sore throat, coughing, abdominal pain, nausea vomiting, diarrhea, constipation, leg swelling, weakness on her arms, hands or legs or numbness on her legs. Patient History <Naren Silver MD - Last Filed: 01/31/25 12:52> Medical History (Updated 01/29/25 @ 18:03 by Naren Silver MD) Irregular menstrual cycle Vision disorder Difficulty breathing Family history of bipolar disorder Depression Headache Foot pain Mumps Measles Chicken pox Hearing loss History of urinary incontinence Generalized anxiety disorder Onychomycosis Surgical History history Anesthesia History of History of section History of surgery Family History Father No problems noted. Mother Diabetes mellitus Frail elderly Sister Family history of thyroid problem Mental health problem Sister Stroke Social History household members: spouse alcohol intake: current substance use type: marijuana Smoking Status: Never smoker alcohol intake frequency: 0-2 drinks per day Alcohol type: wine Exam <Naren Silver MD - Last Filed: 01/31/25 12:52> Narrative Exam Narrative: GENERAL: Alert awake without acute distress. HEAD: Atraumatic. Normocephalic. NECK: Trachea midline. Non tender CARDIOVASCULAR: Regular rate and rhythm without murmurs, gallops, or rubs. RESPIRATORY: Clear to auscultation. Breath sounds equal bilaterally. No wheezes, rales, or rhonchi. GASTROINTESTINAL: Abdomen soft, non-tender, nondistended. EXTREMITIES: No edema or joint tenderness. Normal finger flexion and extension on both hands. NEURO: AOx3. Normal sensation on both hands. SKIN: Mild erythema with my swelling both hands without ecchymosis, deformity. Initial Vital Signs Initial Vital Signs: Vital Signs Temperature 98.4 F 01/29/25 11:24 Pulse Rate 84 01/29/25 11:24 Respiratory Rate 12 01/29/25 11:24 Blood Pressure 159/70 H 01/29/25 11:24 Pulse Oximetry 96 01/29/25 11:24 Oxygen Delivery Method Room Air 01/29/25 11:24 <Harsha Rowe MD - Last Filed: 01/30/25 05:03> Initial Vital Signs Initial Vital Signs: Vital Signs Temperature 98.4 F 01/29/25 11:24 Pulse Rate 84 01/29/25 11:24 Respiratory Rate 12 01/29/25 11:24 Blood Pressure 159/70 H 01/29/25 11:24 Pulse Oximetry 96 01/29/25 11:24 Oxygen Delivery Method Room Air 01/29/25 11:24 Course <Naren Silver MD - Last Filed: 01/31/25 12:52> Orders Ordered: Discontinued Medications Oxycodone/Acetaminophen (Oxycodone/Acetaminophen 5/325 Tablet) 1 tab PO NOW ONE Stop: 01/29/25 13:45 Last Admin: 01/29/25 13:52 Dose: 1 tab Documented By: EB Oxycodone/Acetaminophen (Oxycodone/Acetaminophen 5/325 Tablet) 1 tab PO NOW ONE Stop: 01/29/25 18:47 Last Admin: 01/29/25 18:52 Dose: 1 tab Documented By: EB Oxycodone/Acetaminophen (Oxycodone/Apap 5/325 Prepack) 1 bottle MISC DIRECTED ONE Stop: 01/29/25 20:35 Last Admin: 01/29/25 20:58 Dose: 1 bottle Documented By: EV Vital Signs Vital signs: Vital Signs - 8 hr 01/29/25 11:24 01/29/25 13:14 01/29/25 17:13 Temperature 98.4 F 98.4 F Pulse Rate 84 85 64 Respiratory Rate 12 20 15 Blood Pressure 159/70 H 112/66 112/61 Pulse Oximetry 96 99 98 Oxygen Delivery Method Room Air Room Air Room Air <Harsha Rowe MD - Last Filed: 01/30/25 05:03> Orders Ordered: Discontinued Medications Oxycodone/Acetaminophen (Oxycodone/Acetaminophen 5/325 Tablet) 1 tab PO NOW ONE Stop: 01/29/25 13:45 Last Admin: 01/29/25 13:52 Dose: 1 tab Documented By: EB Oxycodone/Acetaminophen (Oxycodone/Acetaminophen 5/325 Tablet) 1 tab PO NOW ONE Stop: 01/29/25 18:47 Last Admin: 01/29/25 18:52 Dose: 1 tab Documented By: EB Oxycodone/Acetaminophen (Oxycodone/Apap 5/325 Prepack) 1 bottle MISC DIRECTED ONE Stop: 01/29/25 20:35 Last Admin: 01/29/25 20:58 Dose: 1 bottle Documented By: CB Vital Signs Vital signs: Vital Signs - 8 hr 01/29/25 11:24 01/29/25 13:14 01/29/25 17:13 Temperature 98.4 F 98.4 F Pulse Rate 84 85 64 Respiratory Rate 12 20 15 Blood Pressure 159/70 H 112/66 112/61 Pulse Oximetry 96 99 98 Oxygen Delivery Method Room Air Room Air Room Air MDM - Extremity (Nontraumatic) <Naren Silver MD - Last Filed: 01/31/25 12:52> Lab Data 01/29/25 14:22 01/29/25 14:22 Labs: Lab Results 01/29/25 Range/Units 14:22 WBC 9.4 (4.5-11.0) X10^3/uL RBC 4.32 (4.0-5.2) X10^6/uL Hgb 14.0 (12.0-16.0) g/dL Hct 40.1 (36-46) % MCV 92.7 (80-100) fL MCH 32.4 (26-34) PG MCHC 34.9 (30-36) % RDW 12.5 (11.6-14.8) % Plt Count 262 (150-400) X10^3/uL Neut % (Auto) 67.8 (50-75) % Lymph % (Auto) 19.7 L (25-40) % Dixie % (Auto) 6.5 (3-14) % Eos % (Auto) 5.3 H (2-4) % Baso % (Auto) 0.7 (0-2) % Neut # (Auto) 6400 (9020-3825) /uL Lymph # (Auto) 1900 (0042-2505) /uL Dixie # (Auto) 600 (0-900) /uL Eos # (Auto) 500 H (0-450) /uL Baso # (Auto) 100 (0-100) /uL Sodium 135 L (137-145) mmol/L Potassium 3.9 (3.4-5.1) mmol/L Chloride 98 (98-107) mmol/L Carbon Dioxide 28 (22-32) mmol/L BUN 27 H (7-17) mg/dL Creatinine 1.13 H (0.52-1.04) mg/dL Estimated GFR 53 L (>60) mL/min BUN/Creatinine Ratio 23.9 H (6-22) Glucose 138 H (70-99) mg/dL Calcium 9.2 (8.4-10.2) mg/dL Total Bilirubin 0.7 (0.2-1.3) mg/dL AST 32 (14-36) IU/L ALT 29 (<35) IU/L Alkaline Phosphatase 92 (38-126) U/L Total Protein 7.1 (6.3-8.2) g/dL Albumin 4.2 (3.5-5.0) g/dL Globulin 2.9 (1.7-4.1) g/dL Albumin/Globulin Ratio 1.4 (1.0-2.8) Imaging Data DVT ultrasound both upper extremities: Radiologist's Impression: PROCEDURE: US PERIPH VENOUS UP EXTREM DEL INDICATIONS: Bilateral arm pain. Hand swelling. TECHNIQUE: Real-time imaging, as well as color and pulse Doppler interrogation, was performed of both upper extremity deep veins from the inferior neck to the antecubital fossa. COMPARISON: None. FINDINGS: Right: The internal jugular veins, visualized portions of the subclavian veins, axillary veins, and brachial veins are free of intraluminal thrombus. Where physically possible, the veins are normally compressible. Color and pulse Doppler demonstrate normal intraluminal flow, with expected phasicity and pulsatility. Additional scanning of the cephalic and basilic veins of the superficial system demonstrates normal compressibility, without thrombus. Left: The internal jugular veins, visualized portions of the subclavian veins, axillary veins, and brachial veins are free of intraluminal thrombus. Where physically possible, the veins are normally compressible. Color and pulse Doppler demonstrate normal intraluminal flow, with expected phasicity and pulsatility. Additional scanning of the cephalic and basilic veins of the superficial system demonstrates normal compressibility, without thrombus. Other: Incidentally noted are multiple bilateral axillary lymph nodes which are nonenlarged by size criteria but which have normal morphology with asymmetric in lobular contours. Fatty bob are maintained. IMPRESSION: No findings of deep venous thrombosis within either upper extremity. Bilateral axillary lymphadenopathy. Correlate with history of primary malignancy. This appearance is less consistent with systemic infection or lymphoma but these remain within the differential. Dictated by: Nicolle Shields M.D. on 01/29/2025 at 16:09 Approved by: Nicolle Shields M.D. on 01/29/2025 at 16:14 Arterial duplex ultrasound of both upper extremities: Radiologist's Impression: PROCEDURE: US ARTERIAL DUPLEX UE BI INDICATIONS: Bilateral arm pain. Hand swelling. TECHNIQUE: Color and pulse Doppler interrogation was performed of the bilateral upper extremity arterial systems, with image documentation. COMPARISON: None. FINDINGS: Right upper extremity: Spectral broadening is seen throughout. Subclavian artery (proximal): 92 cm/sec, with triphasic flow. Axillary artery: 44 cm/sec, with triphasic flow. Brachial artery (mid): 100 cm/sec, with triphasic flow. Radial artery (proximal): 99 cm/sec, with triphasic flow. Radial artery (mid): 91 cm/sec, with triphasic flow. Radial artery (distal): 112 cm/sec, with triphasic flow. Ulnar artery (proximal): 47 cm/sec, with triphasic flow. Ulnar artery (mid): 55 cm/sec. with triphasic flow. Ulnar artery (distal): 45 cm/sec, with triphasic flow. Varner-scale imaging description: No definite soft or calcific plaque. Left upper extremity: Spectral broadening is seen throughout. Subclavian artery (proximal): 75 cm/sec, with triphasic flow Axillary artery: 57 cm/sec, with triphasic flow. Brachial artery (mid): 143 cm/sec, with triphasic flow. Radial artery (proximal): 92 cm/sec, with triphasic flow. Radial artery (mid): 1 of 3 cm/sec, with triphasic flow. Radial artery (distal): 106 cm/sec. with triphasic flow. Ulnar artery (proximal): 51 cm/sec, with triphasic flow. Ulnar artery (mid): 62 cm/sec, with triphasic flow. Ulnar artery (distal): 9 cm/sec. with monophasic flow. Varner-scale imaging description: No definite soft or calcific plaque. IMPRESSION: Findings suggestive of left distal ulnar stenosis. Otherwise normal bilateral upper extremity arterial sonography. Dictated by: Nicolle Shields M.D. on 01/29/2025 at 16:02 Approved by: Nicolle Shields M.D. on 01/29/2025 at 16:[address] [facility] Narrative Medical decision making narrative: 69 years old female with history of hypertension came today complaining of bilateral hand pain, mild swelling, tingling sensation in both hands since yesterday morning and the pain shooting up to her both elbows without any chest pain, shortness of breath, fever, runny nose, sore throat, coughing, abdominal pain, nausea vomiting, diarrhea, constipation, leg swelling, weakness on her arms, hands or legs or numbness on her legs. On exam showed bilateral hand erythema with mild swelling. Normal neurovascular exam on both hands. Normal sensation and strength in both hands. Her CV exam, lung exam, abdominal exam were normal. She alert oriented x4 without acute distress in the ED. she was able to take the ring off her left ring finger. 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 She will follow up with her PCP outpatient. Her CBC was normal. Her BMP shows sodium 135 BUN 27 creatinine 1.13 otherwise normal BNP. Her LFT was normal. The PEG ultrasound in both upper arm show left distal ulnar stenosis otherwise normal arterial ultrasound of both arms. Her DVT ultrasound showed no DVT on both arms but bilateral axially lymphadenopathy. The CT scan chest abdomen and pelvis with contrast are pending. I signed out to my colleague during the shift change. CT chest abdomen and pelvis was ordered due to this incidental finding of axillary lymphadenopathy. The scattered tiny lymph nodes were nonpathologic by imaging size criteria. There is no acute abnormality or evidence of prior malignancy with a chest, abdomen, or pelvis. Patient reassured and discharged to follow up with her of the above the PCP. 01/31/2025, 12:49 p.m. call back and talked with the patient about accidental finding during the duplex ultrasound left arm could be a thoracic outlet syndrome. On the phone the patient reported the tingling sensation especially 1st to the 3rd fingers of each hand especially on the right side so I think more about could be carpal tunnel syndrome as well. I asked her to get velcro wrist splints on both hands and she could wear the wrist splint overnight and monitor the pain and swelling. Another possibility since she told me that she has been a heavy drinker so it could be vitamin B12 or vitamin B1 deficiency as well. She has an appointment with her primary care doctor on , 02/02/2025 so I asked her to follow up with her primary care doctor for possible nerve conduction test and EMG test as well. <Harsha Rowe MD - Last Filed: 01/30/25 05:03> Lab Data Labs: Lab Results 01/29/25 Range/Units 14:22 WBC 9.4 (4.5-11.0) X10^3/uL RBC 4.32 (4.0-5.2) X10^6/uL Hgb 14.0 (12.0-16.0) g/dL Hct 40.1 (36-46) % MCV 92.7 (80-100) fL MCH 32.4 (26-34) PG MCHC 34.9 (30-36) % RDW 12.5 (11.6-14.8) % Plt Count 262 (150-400) X10^3/uL Neut % (Auto) 67.8 (50-75) % Lymph % (Auto) 19.7 L (25-40) % Dixie % (Auto) 6.5 (3-14) % Eos % (Auto) 5.3 H (2-4) % Baso % (Auto) 0.7 (0-2) % Neut # (Auto) 6400 (3622-6981) /uL Lymph # (Auto) 1900 (4603-1118) /uL Dixie # (Auto) 600 (0-900) /uL Eos # (Auto) 500 H (0-450) /uL Baso # (Auto) 100 (0-100) /uL Sodium 135 L (137-145) mmol/L Potassium 3.9 (3.4-5.1) mmol/L Chloride 98 (98-107) mmol/L Carbon Dioxide 28 (22-32) mmol/L BUN 27 H (7-17) mg/dL Creatinine 1.13 H (0.52-1.04) mg/dL Estimated GFR 53 L (>60) mL/min BUN/Creatinine Ratio 23.9 H (6-22) Glucose 138 H (70-99) mg/dL Calcium 9.2 (8.4-10.2) mg/dL Total Bilirubin 0.7 (0.2-1.3) mg/dL AST 32 (14-36) IU/L ALT 29 (<35) IU/L Alkaline Phosphatase 92 (38-126) U/L Total Protein 7.1 (6.3-8.2) g/dL Albumin 4.2 (3.5-5.0) g/dL Globulin 2.9 (1.7-4.1) g/dL Albumin/Globulin Ratio 1.4 (1.0-2.8) Imaging Data ct chest/abd/pelvis : Radiologist's Impression: Bilateral axillary lymphadenopathy with scattered tiny lymph nodes which are nonpathologic by imaging size criteria throughout the chest, abdomen, and pelvis. The axillary lymph nodes remain the most appropriate biopsy target if biopsy is pursued. No acute abnormality or evidence of primary malignancy of the chest, abdomen, or pelvis. Correlation with mammography, colonoscopy, and other routine screening exams is recommended. MDM Narrative Medical decision making narrative: 69 years old female with history of hypertension came today complaining of bilateral hand pain, mild swelling, tingling sensation in both hands since yesterday morning and the pain shooting up to her both elbows without any chest pain, shortness of breath, fever, runny nose, sore throat, coughing, abdominal pain, nausea vomiting, diarrhea, constipation, leg swelling, weakness on her arms, hands or legs or numbness on her legs. On exam showed bilateral hand erythema with mild swelling. Normal neurovascular exam on both hands. Normal sensation and strength in both hands. Her CV exam, lung exam, abdominal exam were normal. She alert oriented x4 without acute distress in the ED. she was able to take the ring off her left ring finger. 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 She will follow up with her PCP outpatient. Her CBC was normal. Her BMP shows sodium 135 BUN 27 creatinine 1.13 otherwise normal BNP. Her LFT was normal. The PEG ultrasound in both upper arm show left distal ulnar stenosis otherwise normal arterial ultrasound of both arms. Her DVT ultrasound showed no DVT on both arms but bilateral axially lymphadenopathy. The CT scan chest abdomen and pelvis with contrast are pending. I signed out to my colleague during the shift change. CT chest abdomen and pelvis was ordered due to this incidental finding of axillary lymphadenopathy. The scattered tiny lymph nodes were nonpathologic by imaging size criteria. There is no acute abnormality or evidence of prior malignancy with a chest, abdomen, or pelvis. Patient reassured and discharged to follow up with her PCP. Discharge Plan Departure Patient Disposition: Home Clinical Impression: Bilateral hand pain, Stenosis of ulnar artery, Axillary adenopathy Instructions: DI for Lymphadenopathy Activity Restrictions/Additional Instructions: Please follow up with her PCP regarding your hand issue as well as the incidental finding of tiny lymph nodes in her axillary region. No evidence of any primary cancer in your CT scans and no evidence of clot clots. Follow up if pain worsens. Use pain meds as needed. Prescriptions: No Action losartan 50 mg tablet 50 mg PO DAILY Qty: 90 3RF propranolol 60 mg capsule,extended release 24 hr 60 mg PO DAILY Qty: 90 3RF hydrochlorothiazide 25 mg tablet 25 mg PO DAILY Qty: 90 2RF cholecalciferol (vitamin D3) 1,000 unit capsule 1,000 unit PO DAILY esomeprazole magnesium 20 mg capsule,delayed release(DR/EC) 20 mg PO DAILY Qty: 30 0RF One Daily For Women 18-0.4 mg Tablet 1 tab PO DAILY Qty: 0 Referrals: Ilana Hair DO [Primary Care Provider, Family Practice] Stand Alone Forms: Patient Portal/API
--- NOTE | 2025-01-29 14:13 | DI.US.S_ITS ---
PROCEDURE: US ARTERIAL DUPLEX UE BI
--- NOTE | 2025-01-29 14:13 | DI.US.S_ITS ---
PROCEDURE: US PERIPH VENOUS UP EXTREM DEL
[2025-01-29 14:28] LABS: Add Manual Diff / Slide Review NO; Hematocrit 40.1 % (36-46); Hemoglobin 14.0 g/dL (12.0-16.0); Lymphocytes Absolute Auto 1900 /uL (1100-4500); Mean Corpuscular HGB Conc 34.9 % (30-36); Mean Corpuscular Hemoglobin 32.4 PG (26-34); Mean Corpuscular Volume 92.7 fL (80-100); Platelet Count 262 X10^3/uL (150-400)
[2025-01-29 14:42] LABS: Alanine Aminotransferase 29 IU/L (<35); Albumin 4.2 g/dL (3.5-5.0); Albumin Globulin Ratio 1.4 (1.0-2.8); Alkaline Phosphatase 92 U/L (38-126); Blood Urea Nitrogen 27 mg/dL (7-17); Calcium 9.2 mg/dL (8.4-10.2); Carbon Dioxide 28 mmol/L (22-32); Chloride 98 mmol/L (98-107); Estimated Glomerular Filt Rate 53 mL/min (>60); Globulin 2.9 g/dL (1.7-4.1); Glucose 138 mg/dL (70-99); HEMOLYSIS < 15 (0-50); Potassium 3.9 mmol/L (3.4-5.1); Sodium 135 mmol/L (137-145); Total Protein 7.1 g/dL (6.3-8.2)
--- NOTE | 2025-01-29 17:48 | DI.CT.S_ITS ---
PROCEDURE: CT CHEST ABD PEL W CON
== END 2025-01-29 21:01 | disposition home or self-care (01) ==
PROVIDERS: Emergency Medicine; Emergency Provider Family Medicine; PCP Family Medicine
DX: R59.0 Localized enlarged lymph nodes (principal); I70.208 Unspecified atherosclerosis of native arteries of extremities, other extremity; M79.642 Pain in left hand; M79.641 Pain in right hand
CPT/HCPCS: 36415; 71260; 74177; 80053; 85025; 93930; 93970; 99283; 99284; Q9967

== ENCOUNTER → 2025-02-08 11:24 | Outpatient (CLI) | payer MEDICARE, SELFPAY ==
--- NOTE | 2025-02-08 11:25 | DI.MRI.S_ITS ---
PROCEDURE: MR CERVICAL SPINE WO CON INDICATIONS: acute/continuous numbness/tingling of bilateral hands TECHNIQUE: Noncontrast sagittal T1 spin echo and T2 fast spin echo, sagittal STIR, foraminal oblique sagittal T2 fast spin echo, and axial gradient echo or T2 fast spin echo through the cervical spine. COMPARISON: None. FINDINGS: Image quality: Excellent. Alignment and Curvature: There is normal bony alignment. Bone Marrow: Benign intraosseous hemangioma in the C6 vertebral body. Modic type 2 reactive endplate changes adjacent the C4-C5, C5-C6 and C6-C7 discs. Spinal Cord: Visualized spinal cord has normal size and signal. No cerebellar tonsillar herniation. Paraspinous Soft Tissues: No paravertebral masses. Prevertebral soft tissues are normal in thickness. C2-C3: Loss of disc signal. Mild bilateral facet hypertrophy. No central stenosis. Mild right and moderate left neural foraminal narrowing. No neural compression. C3-C4: Loss of disc signal and height. Mild, diffuse disc bulge. Moderate right and mild left facet hypertrophy. Mild bilateral uncovertebral joint hypertrophy. Mild narrowing of the central canal. Severe bilateral neural foraminal narrowing with compression of the C4 nerve roots. C4-C5: Loss of disc signal and height. Moderate, diffuse disc bulge. Mild bilateral facet hypertrophy. Moderate bilateral uncovertebral joint hypertrophy. Severe narrowing of the central canal with mild compression of the cervical spinal cord. Moderate right and severe left neural foraminal narrowing with compression of the left C5 nerve root. C5-C6: Loss of disc signal and height. Mild, diffuse disc bulge. Mild bilateral facet hypertrophy. Moderate bilateral uncovertebral joint hypertrophy. Moderate narrowing of the central canal. Moderate right and severe left neural foraminal narrowing with compression of the left C6 nerve root. C6-C7: Loss of disc signal and height. Mild, diffuse disc bulge. Mild bilateral facet hypertrophy. Mild bilateral uncovertebral joint hypertrophy. Mild narrowing of the central canal. Moderate bilateral neural foraminal narrowing. No neural compression C7-T1: Loss of disc signal. Mild bilateral facet hypertrophy. No central stenosis. No neural foraminal narrowing. No neural compression. IMPRESSION: Multilevel degenerative disc disease. New Bertha F multilevel facet and uncovertebral arthropathy. Severe C4-C5 central canal stenosis with mild compression of the cervical spinal cord. Severe bilateral C3-C4, left C4-C5, left C5-C6 neural foraminal stenosis with compression of the bilateral C4, left C5 and left C6 nerve roots. Dictated by: Chelsey Colindres MD, PhD on 02/08/2025 at 12:05 Approved by: Chelsey Colindres MD, PhD on 02/08/2025 at 12:08
--- OUTSIDE RECORDS SUMMARY | 2025-02-10 16:01 | XMS_ITS | Clinical Summary ---
Author Organization [facility] Address [address] [place] [address] Care Team Providers Care Coding And Reimbursement Specialist Name Role Phone Pcp, None Selected Primary Care Provider Unavail able Allergies No known active allergies Medications hydroCHLOROthia zide (HYDRODIURIL) 25 mg tablet Take 1 tablet (25 mg total) by mouth once daily 0 Active propranolol LA (INDERAL LA) 60 mg 24 hr capsule Take 1 capsule (60 mg total) by mouth once daily 0 Active losartan (COZAAR) 50 mg tablet Take 1 tablet (50 mg total) by mouth daily 1 Active hydrocortisone 2.5 % cream APPLY TO GROIN ONCE DAILY FOR 2 WEEKS PER MONTH NEEDED 5 Active ketoconazole (NIZORAL) 2 % cream apply topically to GROIN IN THE MORNING 5 Active Active Problems No known active problems Immunizations Immunization Administration Dates Next Due FLU 36+Mos Multi-dose (Flulaval,Fluzone)Quad 08/2019 FLU PF 6+Mos Trivalent 0.5ML (Fluzone, FluLaval, Fluarix) 03/19/2019 Influenza Quadrivalent Recombinant Preservative Free 03/19/2019 Tdap (Boostrix,Adacel) 05/18/2018 Family History Medical History Relation Comments Heart failure Father Diabetes Mother Relation Status Comments Father Alive Mother Alive Social History Tobacco Use Types Packs/Day Years Used Date Smoking Tobacco: Never Smokeless Tobacco: Never Comments Unknown Sex and Gender Information Value Date Recorded Sex Assigned at Female 12/23/2020 10:43 PM PDT Legal Sex Female 10:15 AM PST Gender Identity Female 12/23/2020 10:43 PM PDT Sexual Orientation Straight 12/23/2020 10 :43 PM PDT Last Filed Vital Signs Vital Sign Reading Time Taken Comments Blood Pressure 187/104 10/11/2024 9:37 AM PDT pt state it is normal Pulse 74 10/11/2024 9:37 AM PDT Temperature 36.3 C (97.4 F) 02/19/2021 10:17 AM PST Respiratory Rate - - Oxygen Saturation 100% 02/19/2021 10: 17 AM PST Inhaled Oxygen Concentration - - Weight 77.5 kg (170 lb 12.8 oz) 10/11/2024 9:37 AM PDT Height 157.5 cm (5' 2) 10/11/2024 9:37 AM PDT Body Mass Index 31.24 10/11/2024 9:37 AM PDT Plan of Treatment Health Maintenance Due Date Last Done Comments Bone Density Scan 1955 Breast Cancer Screening 1955 Medicare Annual Wellness (AWV) 1955 Depression Screening (PHQ-2) 1967 Colorectal Cancer Screening (Colonoscopy) 08/19/2000 Colorectal Cancer Screening (FOBT) 08/19/2000 Colorectal Cancer Screening (Fecal DNA) 08/19/2000 Colorectal Cancer Screening Combined 08/19/2000 Fall Risk Screening 08/19/2020 COVID-19 Vaccine ( season) 2024 12/03/2023, 01/30/2023, 03/03/2022, Additional history exists Influenza Vaccine (#1) 2024 , 01/30/2023, 03/03/2022, Additional history exists DTaP,Tdap,and Td Vaccines (2 - Td or Tdap) 05/18/2028 05/18/2018 RSV Patients Over 60 years OR qualifying ( Patients) (1 - 1-dose 75+ series) 08/19/2030 HM Pneumococcal Adult 50+ Completed 03/29/2024 HM Pneumococcal Combined Age 0-49 Discontinued 03/29/2024 Zoster Vaccines Completed 05/29/2024, 03/29/2024 HPV Vaccines Aged Out No longer eligi ble based on patient's age to complete this topic Hepatitis A Vaccines Aged Out No long er eligible based on patient's age to complete this topic Hepatitis B Vaccines Aged Out No long er eligible based on patient's age to complete this topic IPV Vaccines Aged Out No longer eligi ble based on patient's age to complete this topic MMR Vaccines Aged Out No longer eligi ble based on patient's age to complete this topic Insurance [facility] [employer] HMO Care Teams Coding And Reimbursement Specialist Relationship Specialty Start Date End Date Pcp, None Selected PCP - General 07/07/24
--- OUTSIDE RECORDS SUMMARY | 2025-02-10 16:01 | XMS_ITS | Clinical Summary ---
Author Organization [facility] Address [address] [address] Care Team Providers Care Technology Education Teacher Name Role Phone Unavailable Primary Care Provider Unavailabl e Source Comments NOTE: The information displayed by Care Everywhere is extracted from the complete medical record and may not identify all current or past patient conditions.[facility] Immunizations Immunization Administration Dates Next Due *EGG-FREE SYRINGE* FluBLOK ( 18+ yrs) RECOMBINANT QUAD 03/19/2019 *HIGH DOSE SYRINGE* FluZONE (65+ Yrs) QUAD 02/18 *VIAL* FluZONE/FluLAVAL (3+ yrs) QUAD 01/27/2020 Moderna SARS-CoV-2 Vaccinati on (12 + 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) 03/06/2021,07/18/2020,06/20/2020 Tdap (Tetanus, Diphtheria, a cellular Pertussis) 05/18/2018 Social History Tobacco Use Types Packs/Day Years Used Date Smoking Tobacco: Never Assessed Comments Unknown Sex and Gender Information Value Date Recorded Sex Assigned at Not on file Legal Sex Female 10:45 AM PDT Gender Identity Not on file Sexual Orientation Not on file Plan of Treatment Health Maintenance Due Date Last Done Comments Hep C Screening (1-time) 08/19/1973 Breast Cancer Screening: Mammogram 1995 Vaccine: Pneumococcal (1 of 1 - PCV) 08/19/2005 Vaccine: Shingles (1 of 2) 08/19/2005 FLU VACCINE (#1) 11/21/2024 02/18/2021, 08/2019, 03/19/2019 Vaccine: MIcK-Llen-Yf (2 - T d or Tdap) 05/18/2028 05/18/2018 Vaccine: RSV (1 - 1-dose 75+ series) 08/19/2030
--- OUTSIDE RECORDS SUMMARY | 2025-02-10 16:01 | XMS_ITS | Encounter Summary ---
Author Organization [facility] Address [address] [place] [address] Care Team Providers Care Veterinarian Epidemiologist Name Role Phone Unavailable Primary Care Provider Unavailabl e Reason for Referral * Outpatient Service (Routine) - Closed Specialty Diagnoses / Procedures Referred By Contac t Referred To Contact Otolaryngology (ENT) Diagnoses Otalgia, unspecified laterality Procedures REF ALBIN/ENT - EXTERNAL OFFICE VISIT E&M EST PT, MODERATE MDM, 30-39 MINS Sunny Pimentel [facility] [address] [id number] [facility] [address] [place] [address] Referral ID Status Reason Start Date Expiration Date V isits Requested Visits Authorized [id number] Closed Evaluate and Treat-Surgery if Indicated 12/24/2020 12/24/2021 6 6 Encounter Details Date Type Department Care Team (Late st Contact Info) Description 12/24/2020 Community Orders Non [facility] Provider Sunny Pimentel [facility] [address] [phone] Otalgia, unspecified laterality (Primary Dx) Social History Tobacco Use Types Packs/Day Years Used Date Smoking Tobacco: Never Assessed Comments Unknown Sex and Gender Information Value Date Recorded Sex Assigned at Not on file Legal Sex Female 10:45 AM PDT Gender Identity Not on file Sexual Orientation Not on file documented as of this encounter Plan of Treatment Not on file documented as of this encounter Visit Diagnoses Diagnosis Otalgia, unspecified laterality- Primary documented in this encounter
--- OUTSIDE RECORDS SUMMARY | 2025-02-10 16:01 | XMS_ITS | Encounter Summary ---
Author Organization [facility] Address [address] [place] [address] Care Team Providers Care Master Chef Name Role Phone Pcp, None Selected Primary Care Provider Unavail able Encounter Details Date Type Department Care Team (Late st Contact Info) Description 04/03/2023 Abstract [facility] [address] [phone] Nicolette Jimenez, [facility] [address] [address] Social History Tobacco Use Types Packs/Day Years Used Date Smoking Tobacco: Never Smokeless Tobacco: Never Comments Unknown Sex and Gender Information Value Date Recorded Sex Assigned at Female 12/23/2020 10:43 PM PDT Legal Sex Female 10:15 AM PST Gender Identity Female 12/23/2020 10:43 PM PDT Sexual Orientation Straight 12/23/2020 10 :43 PM PDT documented as of this encounter Plan of Treatment Not on file documented as of this encounter Visit Diagnoses Not on filedocumented in this encounter Care Teams Master Chef Relationship Specialty Start Date End Date Pcp, None Selected PCP - General 07/07/24 documented as of this encounter
--- OUTSIDE RECORDS SUMMARY | 2025-02-10 16:01 | XMS_ITS | Encounter Summary ---
Author Organization [facility] Address [address] [place] [address] Care Team Providers Care Electronic Communications Technician Name Role Phone Pcp, None Selected Primary Care Provider Unavail able Encounter Details Date Type Department Care Team ([facility] st Contact Info) Description 12/27/2020 Abstract [facility] [address] [phone] Nicolette Jimenez, AuD [address] [address] Social History Tobacco Use Types Packs/Day Years [...] on filedocumented in this encounter Care Teams Electronic Communications Technician Relationship Specialty Start Date End Date Pcp, None Selected PCP - General 07/07/24 documented as of this encounter
== END ==
LOC: MRI 11:24
PROVIDERS: Family Provider Family Medicine; PCP Family Medicine; Referring Provider Family Medicine; Visit Provider Family Medicine
DX: M50.31 Other cervical disc degeneration, high cervical region (principal); M48.02 Spinal stenosis, cervical region; M47.812 Spondylosis without myelopathy or radiculopathy, cervical region; M47.813 Spondylosis without myelopathy or radiculopathy, cervicothoracic region; D18.09 Hemangioma of other sites; R20.0 Anesthesia of skin; R20.2 Paresthesia of skin; R59.0 Localized enlarged lymph nodes; I70.208 Unspecified atherosclerosis of native arteries of extremities, other extremity; M79.641 Pain in right hand; M79.642 Pain in left hand
CPT/HCPCS: 72141